=== PATIENT | female | born 1955 ===

== ENCOUNTER 2021-09-16 07:47 | Outpatient (REF) | payer MEDICARE, SELFPAY ==
[2021-09-16 11:26] LABS: MANUAL DIFF FLAG NO
[2021-09-16 11:36] LABS: Basophils Percent Auto 0.4 % (0-2); Eosinophils Absolute Auto 0.1 X10*3/uL (0.0-0.4); Eosinophils Percent Auto 2.4 % (0-4); Hematocrit 42.8 % (37.0-47.0); Hemoglobin 13.7 g/dl (12.0-16.0); Imm Gran Abs Auto 0.01 X10*3/uL (0.00-0.03); Imm Gran Pct Auto 0.2 % (0.0-0.4); Lymphocytes Absolute Auto 1.6 X10*3/uL (1.2-4.9); Lymphocytes Percent Auto 35.5 % (20-40); Mean Corpuscular Hemoglobin 29.5 pg (27.0-33.0); Mean Platelet Volume 10.3 fL (9.4-12.3); Monocytes Absolute Auto 0.5 X10*3/uL (0.1-1.2); Neutrophils Absolute Auto 2.4 x10*3/uL (2.0-8.3); Neutrophils Percent Auto 51.5 % (45-73); Platelet Count 320 X10*3/uL (160-400); Red Blood Count 4.65 X10*6/uL (4.20-5.50); Red Cell Distribution Width 13.1 % (11.0-16.0); White Blood Count 4.6 X10*3/uL (4.8-10.8)
[2021-09-16 12:04] LABS: Alanine Aminotransferase 25 U/L (0-31); Anion Gap 10 (12-20); Aspartate Amino Transferase 22 U/L (5-31); Blood Urea Nitrogen 16 mg/dL (9-16); Calcium 9.5 mg/dL (8.4-10.2); Carbon Dioxide 26 mmol/L (22-29); Chloride 105 mmol/L (96-108); Cholesterol 217 mg/dL; Estimated Glomerular Filt Rate > 60; Glucose Fasting 100 mg/dL (60-99); HDL Cholesterol 47 mg/dL; LDL Cholesterol Calculated 148 mg/dl; Potassium 4.3 mmol/L (3.3-5.1); Sodium 137 mmol/L (135-145); Triglycerides 112 mg/dL
[2021-09-16 12:09] LABS: Free T4 (Free Thyroxine) 1.26 ng/dL (0.71-1.85); Thyroid Stimulating Hormone 1.26 uIU/mL (0.32-4.0); Vitamin D 25-OH Total 23.4 ng/mL (>30)
[2021-09-21 01:47] LABS: Thyroid Peroxidase Antibodies <1 IU/mL (<9)
== END 2021-09-16 07:48 | disposition home or self-care (01) ==
LOC: HO.HMGCLDS 07:47
PROVIDERS: Visit Provider Internal Medicine
DX: E03.9 Hypothyroidism, unspecified (principal); I10 Essential (primary) hypertension; Z83.3 Family history of diabetes mellitus; N95.9 Unspecified menopausal and perimenopausal disorder
CPT/HCPCS: 36415; 80048; 80061; 82306; 84439; 84443; 84450; 84460; 85025; 86376

== ENCOUNTER 2021-11-05 12:22 | Emergency (ER) | payer MEDICARE, SELFPAY ==
[2021-11-05 13:08] VITALS: BP 147/55; PULSE 63; RESP 18; TEMP 36.9; O2SAT 97; BMI 27.1
[2021-11-05 15:55] LABS: MANUAL DIFF FLAG NO
[2021-11-05 15:56] LABS: Basophils Percent Auto 0.4 % (0-2); Eosinophils Absolute Auto 0.1 X10*3/uL (0.0-0.4); Eosinophils Percent Auto 1.5 % (0-4); Hematocrit 42.2 % (37.0-47.0); Hemoglobin 14.1 g/dl (12.0-16.0); Imm Gran Abs Auto 0.01 X10*3/uL (0.00-0.03); Imm Gran Pct Auto 0.1 % (0.0-0.4); Lymphocytes Absolute Auto 2.2 X10*3/uL (1.2-4.9); Lymphocytes Percent Auto 30.2 % (20-40); Mean Corpuscular HGB Conc 33.4 g/dl (31.0-35.0); Mean Corpuscular Hemoglobin 29.7 pg (27.0-33.0); Mean Platelet Volume 9.6 fL (9.4-12.3); Monocytes Absolute Auto 0.5 X10*3/uL (0.1-1.2); Monocytes Percent Auto 6.5 % (2-11); Neutrophils Absolute Auto 4.5 x10*3/uL (2.0-8.3); Neutrophils Percent Auto 61.3 % (45-73); Platelet Count 301 X10*3/uL (160-400); Red Blood Count 4.74 X10*6/uL (4.20-5.50); Red Cell Distribution Width 12.4 % (11.0-16.0); White Blood Count 7.3 X10*3/uL (4.8-10.8)
[2021-11-05 16:13] LABS: Alanine Aminotransferase 23 U/L (0-31); Albumin Level 4.3 g/dL (3.5-5.0); Alkaline Phosphatase 116 U/L (39-117); Anion Gap 12 (12-20); Aspartate Amino Transferase 23 U/L (5-31); Bilirubin Direct < 0.2 mg/dL (0.0-0.5); Bilirubin Total 0.4 mg/dL (0.0-1.0); Blood Urea Nitrogen 12 mg/dL (9-16); Calcium 9.5 mg/dL (8.4-10.2); Carbon Dioxide 28 mmol/L (22-29); Chloride 102 mmol/L (96-108); Creatinine Clr Calc Pharmacy 60.4; Estimated Glomerular Filt Rate > 60; Glucose Random 160 mg/dL (60-115); Lipase 34 U/L (8-78); Potassium 4.2 mmol/L (3.3-5.1); Sodium 138 mmol/L (135-145); Total Protein 7.1 g/dL (6.5-8.0)
[2021-11-07 07:42] LABS: HBS Num1 1.13 mIU/mL (0-7.99); HBc Num1 0.15 S/CO (0.00-0.79); HBsAGNum1 0.18 S/CO (0.00-0.99); HIV AB/AG Nonreactive (Nonreactive); Hepatitis B Core Antibody Nonreactive (Nonreactive); Hepatitis B Surface Antigen Negative (Negative); ~HepC Num1 0.09 S/CO (0.00-0.79); ~Hepatitis B Surface Antibody NONREACTIVE (Nonreactive); ~Hepatitis C Antibody Nonreactive (Nonreactive)
== END 2021-11-05 16:44 | disposition left against medical advice (07) ==
PROVIDERS: Physician Assistant Medical; Emergency Provider Emergency Medicine
DX: Z20.6 Contact with and (suspected) exposure to human immunodeficiency virus [HIV] (principal)
CPT/HCPCS: 36415; 80048; 80076; 83690; 85025; 86704; 86706; 86803; 87340; 87389; 99281; 99283

== ENCOUNTER 2022-03-03 07:01 | Outpatient (REF) | payer MEDICARE, SELFPAY ==
[2022-03-03 12:22] LABS: Free T4 (Free Thyroxine) 1.17 ng/dL (0.71-1.85); Thyroid Stimulating Hormone 1.67 uIU/mL (0.32-4.0)
[2022-03-03 12:44] LABS: Alanine Aminotransferase 21 U/L (0-31); Anion Gap 15 (12-20); Aspartate Amino Transferase 18 U/L (5-31); Blood Urea Nitrogen 18 mg/dL (9-16); Calcium 9.6 mg/dL (8.4-10.2); Carbon Dioxide 27 mmol/L (22-29); Chloride 102 mmol/L (96-108); Cholesterol 223 mg/dL; Estimated Glomerular Filt Rate > 60; Glucose Fasting 119 mg/dL (60-99); HDL Cholesterol 45 mg/dL; LDL Cholesterol Calculated 148 mg/dl; Potassium 4.2 mmol/L (3.3-5.1); Sodium 140 mmol/L (135-145); Triglycerides 154 mg/dL
[2022-03-03 13:33] LABS: Vitamin D 25-OH Total 51.2 ng/mL (>30)
== END 2022-03-03 07:02 | disposition home or self-care (01) ==
LOC: HO.HMGCLDS 07:01
PROVIDERS: PCP Internal Medicine; Visit Provider Internal Medicine
DX: Z00.01 Encounter for general adult medical examination with abnormal findings (principal); I10 Essential (primary) hypertension; E03.9 Hypothyroidism, unspecified; Z83.3 Family history of diabetes mellitus; Z71.89 Other specified counseling
CPT/HCPCS: 36415; 80048; 80061; 82306; 84439; 84443; 84450; 84460

== ENCOUNTER 2022-03-14 07:38 | Outpatient (REF) | payer MEDICARE, SELFPAY ==
--- NOTE | ~2022-03-14 | MM_ITS ---
EXAMINATION: MM SCREENING DIGITAL BREAST TOMOSYNTHESIS, BILATERAL CLINICAL INFORMATION: Screening. Asymptomatic. The lifetime risk of breast cancer based on the Tyrer-Cuzick Model is 5%. COMPARISON: Mammography: 10/25/2017, 08/20/2015 TECHNIQUE: Digital breast tomosynthesis is performed in both the craniocaudal and mediolateral oblique views along with computer-aided detection (CAD). Synthesized 2D images are generated from the tomosynthesis. FINDINGS: There are scattered areas of fibroglandular density (ACR BI-RADS breast composition Category b). There are no significant masses, abnormal calcifications, or other abnormalities. Parenchymal pattern is similar to prior studies. No developing density or architectural abnormality. The axilla are unremarkable. MM/MM tomosynthesis screening BI IMPRESSION: No mammographic evidence of malignancy. ASSESSMENT: BI-RADS 1: Negative RECOMMENDATION: Routine annual mammography screening. This patient's information was entered into a reminder system with a target due date for their next mammogram.
== END 2022-03-14 07:39 | disposition home or self-care (01) ==
LOC: HO.MAMMO 07:38
PROVIDERS: Visit Provider Internal Medicine
DX: Z12.31 Encounter for screening mammogram for malignant neoplasm of breast (principal)
CPT/HCPCS: 77063; 77067

== ENCOUNTER 2022-08-25 06:43 | Outpatient (REF) | payer MEDICARE, SELFPAY ==
[2022-08-25 11:51] LABS: Estimated Average Glucose 126 mg/dL
[2022-08-25 12:38] LABS: Anion Gap 10 (12-20); Blood Urea Nitrogen 14 mg/dL (9-16); Calcium 9.4 mg/dL (8.4-10.2); Carbon Dioxide 28 mmol/L (22-29); Chloride 105 mmol/L (96-108); Cholesterol 204 mg/dL; Estimated Glomerular Filt Rate > 60; Glucose Fasting 108 mg/dL (60-99); HDL Cholesterol 38 mg/dL; LDL Cholesterol Calculated 137 mg/dl; Sodium 139 mmol/L (135-145); Triglycerides 149 mg/dL
[2022-08-25 12:41] LABS: Free T4 (Free Thyroxine) 1.08 ng/dL (0.71-1.85); Thyroid Stimulating Hormone 3.18 uIU/mL (0.32-4.0)
== END 2022-08-25 06:44 | disposition home or self-care (01) ==
LOC: HO.HMGCLDS 06:43
PROVIDERS: PCP Internal Medicine; Visit Provider Internal Medicine
DX: E03.9 Hypothyroidism, unspecified (principal); E78.5 Hyperlipidemia, unspecified; I10 Essential (primary) hypertension; Z83.3 Family history of diabetes mellitus
CPT/HCPCS: 36415; 80048; 80061; 83036; 84439; 84443

== ENCOUNTER 2022-08-28 11:17 | Outpatient (AMB) | payer MEDICARE, SELFPAY ==
--- NOTE | 2022-08-28 11:28 | A.OFFPC_ITS ---
Vital Signs 08/28/22 11:41 Height 5 ft Weight 148 lb BMI 28.9 BP 120/72 Blood Pressure Location Rt brachial Position Sitting Pulse 78 Pulse Source Pulse Oximeter Pulse Oximetry (%) 97 Oxygen Delivery Method Room Air Intake Visit Reasons: 6 month follow up HTN, Lipids,Thyroid Intake Note: Pt is here today for her 6 months f/u HTN, lipids and thyriod Allergies No Known Allergies Allergy (Verified 10/12/23 10:54) Medication List - Last Reconciled 08/28/22 by Tiffany Kapoor MD doxepin mg PO fexofenadine ([facility] All[facility]) 180 mg PO DAILY levothyroxine 75 mcg PO DAILY Tobacco use date assessed: 08/28/22 Fall risk assessment: No Falls in past year Last assessed Fall Risk: 08/28/22 HPI 6 month follow up HTN, Lipids,Thyroid HPI Details 67-year-old lady here today for follow-u p on her hypertension, dysl ipidemia hypothyroidism. She has been compliant with taking her medications and following recommended diet. Recent fasting labs showed slightly elevated LDL cholesterol and triglycerides as well as fasting blood sugar , blood pressure within normal limits. Thyroid levels are also within normal limits. Instead of persistent cough, dry with no accompanying shortness of breath, no wheezing, has been afebrile with no complains of fatigue or malaise. She is that this has been present now for the last several months, has been taking [id number] allergy medicines which affords only temporary relief. [facility] Medical History Impaired fasting glucose Dyslipidemia Family history of diabetes mellitus Difficulty sleeping Witnessed apneic spells Snoring Acquired hypothyroidism Surgical History H/O section Hx laparoscopic cholecystectomy Hx of tonsillectomy Family History Maternal Aunt Mental health disorder Father CAD (coronary artery disease) HTN (hypertension) Mother HTN (hypertension) Sister Diabetes mellitus Social History Housing: House Patient Tobacco Use Status: Never used Tobacco e-Cigarette/Vaping Use: Never Used service: No Current occupational status: retired Cognitive needs: No Hearing needs: No Vision needs: Yes Questionnaire PHQ-9 Over the last 2 weeks, how often have you been bothered by any of the following problems? 72545 - PHQ-9 Billing: Patient declined-do not bill Source: Developed by Drs. Jackson Lerner, Iva Herron, Robert Shi and colleagues, with an educational nissa from [employer]. Thrive Questionnaire Date Thrive assessed: 08/28/22 What is your living situation today?: I choose not to answer this question Within the past 12 months, did the food you bought not last and you didn't have the money to get more?: I choose not to answer this question Within the past 12 months, did you worry whether your food would run out before you got money to buy more?: I choose not to answer this question Do you have trouble paying for medicines?: I choose not to answer this question Do you have trouble getting transportation to medical appointments?: I choose not to answer this question Do you have trouble paying your heating and electricity bill?: I choose not to answer this question Do you have trouble taking care of your child, family member or friend?: I choose not to answer this question Do you have trouble with day-to-day activities such as bathing, preparing meals, shopping, managing finances, etc.?: I choose not to answer this question Are you currently unemployed and looking for a job?: I choose not to answer this question Are you interested in more education?: I choose not to answer this question AUDIT C Alcohol Use Questionnaire (AUDIT-C) 1. How often do you have a drink containing alcohol?: Never Total Score: 0 SUZE-7 AMB Questionnaire SUZE-7 Date SUZE - 7 assessed: 08/28/22 Source: Developed by Drs. Jackson Lerner, Iva Herron, Robert Shi and colleagues, with an educational nissa from [employer]. SUZE-7 Assessment Billing SUZE-7 Assessment Tool: pt declined-do not bill Review of Systems Const Denies body aches, Denies fatigue, Denies fever(s) and Denies headache(s) ENT Denies dizziness, Denies headache(s) and Denies nasal discharge Card Denies chest pain, Denies lightheadedness, Denies palpitations and Denies dyspnea Resp Denies chest congestion, Denies dyspnea and Denies wheezing GI Reports no additional complaints and Denies heartburn Denies urinary frequency, Denies dysuria and Denies urinary urgency Musc Reports no additional complaints Skin/Breast Denies lesions and Denies rash Neuro Denies dizziness and Denies headache(s) Endo Denies fatigue, Denies polydipsia, Denies polyuria and Denies palpitations Gustabo/Lymph Denies easy bruising Aller/Immun Reports seasonal rhinorrhea and Denies wheezing Physical exam (Primary Care) Vital Signs: Last Vital Signs Pulse 78 08/28/22 11:41 BP 120/72 08/28/22 11:41 Pulse Ox 97 08/28/22 11:41 Oxygen Delivery Method Room Air 08/28/22 11:41 BMI result Body Mass Index 28.9 Tobacco/Smoking Status: Tobacco use Status Tobacco use date assessed 08/28/22 08/28/22 11:44 Patient Tobacco Use Status Never used Tobacco 08/28/22 11:28 e-Cigarette/Vaping Use Never Used 08/28/22 11:28 Thrive Assessment: Date of Thrive Assessment Date Thrive assessed 08/28/22 08/28/22 11:41 Const Other: Alert oriented x3, no acute distress noted ambulatory normal gait Orientation/consciousness: patient oriented x3 HENKY Head: Yes atraumatic Ears: hearing grossly normal bilaterally General nose exam: Normal external nose present Face and sinus: Yes face symmetric Mouth: Normal oral and palatal mucosa present, oropharynx normal and moist mucous membranes Eyes General: appearance normal, both eyes and all related structures Neck Other: Thyroid gland nonpalpable, nontender to palpation Neck: Yes full ROM, Yes no lymphadenopathy, Yes no meningeal signs and Yes supple Resp Effort & Inspection: normal respiratory effort and able to speak in complete sentences Auscultation: clear to auscultation bilaterally Cardio Other: S1 S2 present regular rate and rhythm GI Other: Normal bowel sounds, soft, slight tenderness on right upper quadrant with no mass palpated negative Hays's sign General: Yes no CVA tenderness Back/Spine/Pelvis Back: no CVA tenderness and No back tenderness Skin General skin exam: no rashes or lesions noted Neuro General: patient oriented x3, gait normal, tone normal, moves all extremities, Normal light touch and pain sensation, no meningeal signs, no focal motor deficits and CN's II-XI intact bilaterally Extrem General: Yes full ROM, Yes no joint enlargement, Yes no clubbing, cyanosis or edema, Yes no calf tenderness and Yes normal gait Results Reviewed Results Reviewed: ENTERED: 08/25/22 KATHE VITALE: ORDERED: Met Prof Fast, Lipid Panel, Free T4, TSH Test Result Flag Reference Site Sodium 139 135-145 mmol/L Potassium 4.0 3.3-5.1 mmol/L CL 105 96-108 mmol/L CO2 28 22-29 mmol/L Gap 10 L 12-20 BUN 14 9-16 mg/dL Creat 0.73 0.5-1.4 mg/dL EGFR > 60 NOTE: For -[place] individuals, multiply the result by 1.210. Chronic Kidney Disease: Estimated GFR < 60 mL/min/1.73m2 Severe Kidney Disease: Estimated GFR < 15 mL/min/1.73m2 FBS 108 H 60-99 mg/dL A fasting glucose from 100-125 mg/dl is considered impaired (pre-diabetes). CA 9.4 8.4-10.2 mg/dL Triglyceride 149 mg/dL Desirable Triglyceride: less than 150 mg/dL Borderline High Triglyceride 150-199 mg/dL High Triglyceride: 200-499 mg/dL Very High Triglyceride: greater than or equal to 5OO mg/dL Chol 204 mg/dL Desirable Cholesterol: less than 200 mg/dL Borderline High Cholesterol: 200-239 mg/dL High Cholesterol: greater than 239 mg/dL LDL Calculated 137 mg/dl Desirable LDL: less than 100 mg/dL Near Optimal/Above Optimal LDL: 110-129 mg/dL Borderline High LDL: 130-159 mg/dL High LDL: 160-189 mg/dL Very High LDL: greater than or equal to 190 mg/dL HDL 38 mg/dL Desirable HDL: greater than 40 mg/dL Note: This HDL assay may give artificially low results in patients with liver disease. Free T4 1.08 0.71-1.85 ng/dL TSH 3rd Gen. 3.18 0.32-4.0 uIU/mL Note: A sustained TSH level above 2.5 uIU/mL may warrant further investigation. TSH 3rd Generation ([facility]) Assessment and Plan Assessment & Plan (1) Unexplained chronic cough: Code(s): R05.3 - Chronic cough Plan: Ordered pulmonary function testing with methacholine challenge. Empirically started on fexofenadine 180 mg per tablet take 1 daily as needed for nasal congestion and postnasal drainage. (2) Impaired fasting glucose: Code(s): R73.01 - Impaired fasting glucose Plan: Your fasting blood sugars elevated above 100 mg/dL. Impaired glucose metabolism increases your risk for developing diabetes mellitus type 2, as well as heart attack and stroke later on. Lifestyle changes , weight loss, healthy eating habits, and regular exercise are important, and can prevent the progression to diabetes (3) Dyslipidemia: Code(s): E78.5 - Hyperlipidemia, unspecified Plan: Recent fasting labs reveals high LDL cholesterol. Reinforced importance of following healthy diet and getting regular exercise. (4) Acquired hypothyroidism: Code(s): E03.9 - Hypothyroidism, unspecified Plan: Recent thyroid levels are within normal limits, continue with current dose of levothyroxine 75 mcg daily Orders: Orders RT pft w methacholine 08/28/22 R05.3 - Chronic cough PFT pulmonary function test 08/28/22 R05.3 - Chronic cough Medications: New fexofenadine ([facility] Allergy) 180 mg PO DAILY Coding Level of Care Code Est Pt Level 4 (54569) Complex EM visit Add On G2211 Diagnoses Unexplained chronic cough R05.3 Impaired fasting glucose R73.01 Dyslipidemia E78.5 Acquired hypothyroidism E03.9
[2022-08-28 11:41] VITALS: BP 120/72; PULSE 78; O2SAT 97; BMI 28.9
== END 2022-08-28 13:05 | disposition home or self-care (01) ==
LOC: HO.HMGC 11:18
PROVIDERS: PCP Internal Medicine; Visit Provider Internal Medicine
DX: R05.3 Chronic cough (principal); R73.01 Impaired fasting glucose; E78.5 Hyperlipidemia, unspecified; E03.9 Hypothyroidism, unspecified
CPT/HCPCS: 99499

== ENCOUNTER 2022-11-24 09:04 | Outpatient (REF) | payer MEDICARE, SELFPAY ==
--- NOTE | 2022-11-24 10:02 | PFT_ITS ---
INDICATION: Cough. SPIROMETRY: FEV1 to FVC of 89% with an FEV1 of 2.34 L, which is 122% predicted. FVC of 2.62 L, which is 105% predicted. No significant response to bronchodilators noted. Maximum voluntary ventilation 59% predicted. LUNG VOLUMES: Total lung capacity 79% predicted with an expiratory reserve volume of 22% predicted. DIFFUSION CAPACITY: DLCO 113% predicted. COMPARISONS: None. INTERPRETATION: No obstructive ventilatory defects. No significant response to bronchodilators noted. There was a moderate decrease in the maximum voluntary ventilation, which should be secondary to deconditioning, although cannot rule out normal muscular conditions. The patient does have restrictive ventilatory defect consistent with very mild restrictive lung disease. Parenchymal lung conditions cannot rule out. Neuromuscular conditions also need to be considered. Again, this is only a mild decrease. The diffusion capacity reassuring. Clinical correlation warranted. Homero Diaz MD MR/MODL / [id number]
== END 2022-11-24 09:05 | disposition home or self-care (01) ==
LOC: HO.RESP 09:04
PROVIDERS: PCP Internal Medicine; Visit Provider Internal Medicine
DX: R05.3 Chronic cough (principal)
CPT/HCPCS: 94010; 94727; 94729

== ENCOUNTER → 2022-11-24 10:02 | Outpatient (BNV) | payer MEDICARE, SELFPAY | PROVIDERS: PCP Internal Medicine; Visit Provider Hospitalist | DX: R05.9 Cough, unspecified (principal) | CPT/HCPCS: 94060; 94727; 94729 ==

== ENCOUNTER 2023-03-09 10:38 | Outpatient (AMB) | payer MEDICARE, SELFPAY ==
[2023-03-09 11:05] VITALS: BP 136/82; PULSE 64; O2SAT 97; BMI 29.0
--- NOTE | 2023-03-09 11:05 | MHC.PC.OV ---
Vital Signs 03/09/23 11:05 Height 5 ft Weight 148 lb 8 oz BMI 29.0 BP 136/82 Blood Pressure Location Rt brachial Position Sitting Pulse 64 Pulse Source Pulse Oximeter Pulse Oximetry (%) 97 Oxygen Delivery Method Room Air Intake Visit Reasons: Annual Physical Intake Note: pt is here for a PE pt has not had the recent covid booster Allergies No Known Allergies Allergy (Verified 10/12/23 10:54) Medication List - Last Reconciled 03/09/23 by Tiffany Kapoor MD doxepin mg PO fexofenadine ([facility]) 180 mg PO DAILY levothyroxine 75 mcg PO DAILY Tobacco use date assessed: 08/28/22 Fall risk assessment: No Falls in past year Last assessed Fall Risk: 03/09/23 Dental Screening Dental Screen Date: 03/09/23 Did you have a dental visit in the last 12 months?: Yes Did you have a dental problem in the last 6 months where you did not have access to dental care?: No Was dental information given to patient?: Patient has dentist HPI Annual Physical HPI Details 68-year-old lady with hypothyroidism, with history of impaired fasting glucose, here today for her physical exam. She is already scheduled for her screening mammogram later this month, and is up-to-date with her screening colonoscopy [place] [address] Pina, repeat due again in 2028. Has been feeling well with no complaints at slept for occasional difficulty initiating sleep. [facility] Medical History Impaired fasting glucose Dyslipidemia Family history of diabetes mellitus Difficulty sleeping Witnessed apneic spells Snoring Acquired hypothyroidism Surgical History H/O section Hx laparoscopic cholecystectomy Hx of tonsillectomy Family History Maternal Aunt Mental health disorder Father CAD (coronary artery disease) HTN (hypertension) Mother HTN (hypertension) Sister Diabetes mellitus Social History Housing: House Patient Tobacco Use Status: Never used Tobacco e-Cigarette/Vaping Use: Never Used service: No Current occupational status: retired Cognitive needs: No Hearing needs: No Vision needs: Yes Questionnaire PHQ-9 Over the last 2 weeks, how often have you been bothered by any of the following problems? Depression Screening Interpretation: Negative Depression Screening Done: Yes Source: Developed by Drs. Jackson Lerner, Iva Herron, Robert Shi and colleagues, with an educational nissa from [employer]. Thrive Questionnaire Date Thrive assessed: 08/28/22 SUZE-7 AMB Questionnaire SUZE-7 Date SUZE - 7 assessed: 08/28/22 Source: Developed by Drs. Jackson Lerner, Iva Herron, Robert Shi and colleagues, with an educational nissa from [employer]. Review of Systems Const Denies body aches, Denies fatigue, Denies fever(s) and Denies headache(s) Eyes Denies change in vision ENT Denies dizziness, Denies headache(s) and Denies nasal discharge Card Denies chest pain, Denies lightheadedness, Denies palpitations and Denies dyspnea Resp Denies chest congestion, Denies cough, Denies dyspnea and Denies wheezing GI Reports no additional complaints Denies urinary frequency, Denies dysuria and Denies urinary urgency Musc Reports no additional complaints Skin/Breast Denies lesions and Denies rash Neuro Denies dizziness and Denies headache(s) Psych Reports no additional complaints Endo Denies fatigue, Denies polydipsia, Denies polyuria and Denies palpitations Gustabo/Lymph Denies easy bruising Aller/Immun Denies seasonal rhinorrhea and Denies wheezing Physical exam (Primary Care) Vital Signs: Last Vital Signs Pulse 64 03/09/23 11:05 BP 136/82 03/09/23 11:05 Pulse Ox 97 03/09/23 11:05 Oxygen Delivery Method Room Air 03/09/23 11:05 BMI result Body Mass Index 29.0 Tobacco/Smoking Status: Tobacco use Status Tobacco use date assessed 08/28/22 03/09/23 11:10 Patient Tobacco Use Status Never used Tobacco 03/09/23 11:10 e-Cigarette/Vaping Use Never Used 03/09/23 11:10 Depression Screening Interpretation: Negative Thrive Assessment: Date of Thrive Assessment Date Thrive assessed 08/28/22 03/09/23 11:10 Const Other: Alert oriented x3, no acute distress noted ambulatory normal gait Orientation/consciousness: patient oriented x3 [facility] General nose exam: Normal external nose present Face and sinus: Yes face symmetric Mouth: Normal oral and palatal mucosa present, oropharynx normal and moist mucous membranes Eyes General: appearance normal, both eyes and all related structures Neck Other: Thyroid gland nonpalpable, nontender to palpation Neck: Yes full ROM, Yes no lymphadenopathy, Yes no meningeal signs and Yes supple Chest Breast/axilla inspection: normal inspection of the breasts Breast/axilla palpation: normal palpation of the breasts Resp Effort & Inspection: normal respiratory effort and able to speak in complete sentences Auscultation: clear to auscultation bilaterally Cardio Other: S1 S2 present regular rate and rhythm GI Palpation (GI): Soft to palpation, nontender and no guarding Auscultation: normal bowel sounds General: Yes no CVA tenderness Back/Spine/Pelvis Back: no CVA tenderness and No back tenderness Skin General skin exam: no rashes or lesions noted Neuro General: patient oriented x3, gait normal, tone normal, moves all extremities, Normal light touch and pain sensation, no meningeal signs, no focal motor deficits and CN's II-XI intact bilaterally Extrem General: Yes full ROM, Yes no joint enlargement, Yes no clubbing, cyanosis or edema, Yes no calf tenderness and Yes normal gait Psych Appearance: grossly normal and well kempt Mental Status: mental status grossly normal Speech and movement: Normal speech and movement present Affect: normal affect Assessment and Plan Assessment & Plan (1) Annual visit for general adult medical examination with abnormal findings: Code(s): Z00.01 - Encounter for general adult medical examination with abnormal findings Plan: Will check appropriate labs. Continue regular dental visit every 6 months and regular eye exams, at least every 2 years. Take adequate calcium in diet and vitamin-D 3 at 2000 IU per cap once a day, in addition to weight-bearing exercises to help maintain good muscle tone and weight control. Instructed to do self-breast exam, and continue with yearly mammogram, starting , already scheduled. Up-to-date with her screening colonoscopy done in 2018, due again in [address] Pina. Reminded to get the most recent COVID vaccine booster, gets yearly flu shot , up-to-date with her pneumococcal vaccination, recommended to get vaccinated against shingles, which she can get administered at her pharmacy (2) Dyslipidemia: Code(s): E78.5 - Hyperlipidemia, unspecified Plan: Last fasting lipids showed elevated LDL cholesterol, reinforced importance of adhering to a healthy diet, and getting regular cardio exercise at least 3 times a week. (3) Acquired hypothyroidism: Code(s): E03.9 - Hypothyroidism, unspecified (4) Essential hypertension: Code(s): I10 - Essential (primary) hypertension (5) Impaired fasting glucose: Code(s): R73.01 - Impaired fasting glucose Plan: Your fasting blood sugars elevated was above 100 mg/dL. Impaired glucose metabolism increases the t risk for developing diabetes mellitus type 2, as well as heart attack and stroke later on. Lifestyle changes , healthy eating habits, and regular exercise are important, and can prevent the progression to diabetes (6) Difficulty sleeping: Code(s): G47.9 - Sleep disorder, unspecified Plan: Will increase doxepin dose to 10 mg 1 a day bedtime as needed for insomnia Orders: Orders Hemoglobin A1c 03/09/23 E78.5 - Hyperlipidemia, unspecified, Z83.3 - Family history of diabetes mellitus, E03.9 - Hypothyroidism, unspecified, I10 - Essential (primary) hypertension Lipid Panel 03/09/23 E78.5 - Hyperlipidemia, unspecified, Z83.3 - Family history of diabetes mellitus, E03.9 - Hypothyroidism, unspecified, I10 - Essential (primary) hypertension Vitamin D 25-OH Total 03/09/23 E78.5 - Hyperlipidemia, unspecified, Z83.3 - Family history of diabetes mellitus, E03.9 - Hypothyroidism, unspecified, I10 - Essential (primary) hypertension Thyroid Stimulating Hormone 03/09/23 E78.5 - Hyperlipidemia, unspecified, Z83.3 - Family history of diabetes mellitus, E03.9 - Hypothyroidism, unspecified, I10 - Essential (primary) hypertension Free T4 (Free Thyroxine) 3 Months E03.9 - Hypothyroidism, unspecified, E78.5 - Hyperlipidemia, unspecified, Z83.3 - Family history of diabetes mellitus, I10 - Essential (primary) hypertension Medications: Changed From doxepin PO To doxepin 10 mg PO BEDTIME PRN 90 caps 0RF insomnia Refilled levothyroxine 75 mcg PO DAILY 90 tabs 1RF Coding Level of Care Code Est Pt Prev Care >65y(48602) Diagnoses Annual visit for general adult medical examination with abnormal findings Z00.01 Dyslipidemia E78.5 Acquired hypothyroidism E03.9 Essential hypertension I10 Impaired fasting glucose R73.01 Difficulty sleeping G47.9
== END 2023-03-09 12:05 | disposition home or self-care (01) ==
PROVIDERS: Visit Provider Internal Medicine
DX: Z00.01 Encounter for general adult medical examination with abnormal findings (principal); E78.5 Hyperlipidemia, unspecified; E03.9 Hypothyroidism, unspecified; I10 Essential (primary) hypertension; R73.01 Impaired fasting glucose; G47.9 Sleep disorder, unspecified
CPT/HCPCS: 99499

== ENCOUNTER 2023-03-21 07:21 | Outpatient (REF) | payer MEDICARE, SELFPAY ==
--- NOTE | ~2023-03-21 | MM_ITS ---
EXAMINATION: MM SCREENING DIGITAL BREAST TOMOSYNTHESIS, BILATERAL CLINICAL INFORMATION: Screening. Asymptomatic. COMPARISON: Mammography: This study is compared with prior exams dating back to 2015. TECHNIQUE: Digital breast tomosynthesis is performed in both the craniocaudal and mediolateral oblique views along with computer-aided detection (CAD). Synthesized 2D images are generated from the tomosynthesis. FINDINGS: There are scattered areas of fibroglandular density (ACR BI-RADS breast composition Category b). There are no significant masses, abnormal calcifications, or other abnormalities. MM/MM tomosynthesis screening BI IMPRESSION: No mammographic evidence of malignancy. ASSESSMENT: BI-RADS BI-RADS 1 - Negative RECOMMENDATION: Routine annual mammography screening. 1 year F/U This examination should not preclude the clinical evaluation of a suspicious palpable abnormality. This patient's information was entered into a reminder system with a target due date for their next mammogram.
== END 2023-03-21 07:22 | disposition home or self-care (01) ==
LOC: HO.MAMMO 07:21
PROVIDERS: PCP Internal Medicine; Visit Provider Internal Medicine
DX: Z12.31 Encounter for screening mammogram for malignant neoplasm of breast (principal)
CPT/HCPCS: 77063; 77067

== ENCOUNTER → 2023-03-21 07:30 | Outpatient (BNV) | payer MEDICARE, SELFPAY | PROVIDERS: PCP Internal Medicine; Visit Provider Radiology Diagnostic Radiology | DX: Z12.31 Encounter for screening mammogram for malignant neoplasm of breast (principal) | CPT/HCPCS: 77063; 77067 ==

== ENCOUNTER 2023-04-13 07:29 | Outpatient (REF) | payer MEDICARE, SELFPAY ==
[2023-04-13 11:38] LABS: Cholesterol 199 mg/dL (<200); HDL Cholesterol 42 mg/dL (>40); LDL Cholesterol Calculated 121 mg/dL (<100); Triglycerides 184 mg/dL (<150)
[2023-04-13 11:44] LABS: Thyroid Stimulating Hormone 1.66 uIU/mL (0.32-4.0); Vitamin D 25-OH Total 52.7 ng/mL (>30)
[2023-04-13 11:59] LABS: Estimated Average Glucose 126 mg/dL
== END 2023-04-13 07:30 | disposition home or self-care (01) ==
LOC: HO.HMGCLDS 07:29
PROVIDERS: PCP Internal Medicine; Visit Provider Internal Medicine
DX: I10 Essential (primary) hypertension (principal); E03.9 Hypothyroidism, unspecified; E78.5 Hyperlipidemia, unspecified; Z83.3 Family history of diabetes mellitus
CPT/HCPCS: 36415; 80061; 82306; 83036; 84443

== ENCOUNTER 2023-06-08 09:58 | Outpatient (REF) | payer MEDICARE, SELFPAY ==
[2023-06-08 14:19] LABS: Free T4 (Free Thyroxine) 1.14 ng/dL (0.71-1.85)
== END 2023-06-08 09:59 | disposition home or self-care (01) ==
LOC: HO.HMGCLDS 09:58
PROVIDERS: PCP Internal Medicine; Visit Provider Internal Medicine
DX: E03.9 Hypothyroidism, unspecified (principal); E78.5 Hyperlipidemia, unspecified; I10 Essential (primary) hypertension; Z83.3 Family history of diabetes mellitus
CPT/HCPCS: 36415; 84439

== ENCOUNTER 2023-09-14 11:11 | Outpatient (AMB) | payer MEDICARE, SELFPAY ==
[2023-09-14 11:32] VITALS: BP 132/80; PULSE 66; TEMP 36.6; O2SAT 98; BMI 28.9
--- NOTE | 2023-09-14 11:32 | AM.OFFWIN_ITS ---
Intake Vital Signs 09/14/23 11:32 Height 5 ft Weight 148 lb BMI 28.9 BP 132/80 Blood Pressure Location Rt brachial Position Sitting Pulse 66 Pulse Source Pulse Oximeter Temp 97.8 F Temp Source Temporal Artery Scan Pulse Oximetry (%) 98 Intake Visit Reasons: EST/right side pain radiating through back (lobby) Intake Note: pt is here for right side/rib pain ongoing since before February Patient Tobacco Use Status: Never used Tobacco Allergies No Known Allergies Allergy (Verified 09/14/23 11:34) Do you need a note to return to daycare/school/sports/work: No HPI HPI Comments History of Present Illness Details 68 y/o female patient who presents to [facility] in clinic with c/o right upper abdominal pain. This is an on going issue for months. Pt has an appointment with PCP in September. [facility] Medical History (Updated 09/05/23 @ 22:03 by Tiffany Kapoor MD) Impaired fasting glucose Unexplained chronic cough Dyslipidemia Family history of diabetes mellitus Difficulty sleeping Witnessed apneic spells Snoring Essential hypertension Acquired hypothyroidism Surgical History H/O section Hx laparoscopic cholecystectomy Hx of tonsillectomy Family History Maternal Aunt Mental health disorder Father CAD (coronary artery disease) HTN (hypertension) Mother HTN (hypertension) Sister Diabetes mellitus Social History Housing: House Patient Tobacco Use Status: Never used Tobacco e-Cigarette/Vaping Use: Never Used service: No Current occupational status: retired Cognitive needs: No Hearing needs: No Vision needs: Yes Review of Systems Const All systems reviewed & are unremarkable except as noted in HPI and below Physical Exam Vital Signs: Last Vital Signs Temp 97.8 F 09/14/23 11:32 Pulse 66 09/14/23 11:32 BP 132/80 09/14/23 11:32 Pulse Ox 98 09/14/23 11:32 BMI result Body Mass Index 28.9 Const Orientation/consciousness: patient oriented x3 Neuro General: patient oriented x3, gait normal and moves all extremities Psych Speech and movement: Normal speech and movement present Assessment & Plan Assessment & Plan (1) Right upper quadrant abdominal pain: Code(s): R10.11 - Right upper quadrant pain Plan: - Pt has an upcoming Appointment with PCP in September - F/U with PCP regarding this issue - PCP ordered Fasting Labs to done prior to Appointment. Coding Level of Care Code Est Pt Level 3 (10409) Diagnoses Right upper quadrant abdominal pain R10.11 Time Spent (min) 10
== END 2023-09-14 12:43 | disposition home or self-care (01) ==
PROVIDERS: PCP Internal Medicine; Visit Provider Nurse Practitioner Family
DX: R10.11 Right upper quadrant pain (principal)
CPT/HCPCS: 99213

== ENCOUNTER 2023-09-15 08:28 | Outpatient (REF) | payer MEDICARE, SELFPAY ==
[2023-09-15 11:33] LABS: Estimated Average Glucose 128 mg/dL; Hemoglobin A1c % 6.1 % (<6.0)
[2023-09-15 11:44] LABS: Anion Gap 12 (12-20); Blood Urea Nitrogen 21 mg/dL (9-16); Calcium 9.2 mg/dL (8.4-10.2); Carbon Dioxide 25 mmol/L (22-29); Chloride 107 mmol/L (96-108); Cholesterol 209 mg/dL (<200); Estimated Glomerular Filt Rate > 60; Glucose Fasting 108 mg/dL (60-99); HDL Cholesterol 45 mg/dL (>40); LDL Cholesterol Calculated 138 mg/dL (<100); Potassium 3.9 mmol/L (3.3-5.1); Sodium 140 mmol/L (135-145); Triglycerides 132 mg/dL (<150)
[2023-09-15 12:09] LABS: Free T4 (Free Thyroxine) 1.15 ng/dL (0.71-1.85); Thyroid Stimulating Hormone 1.68 uIU/mL (0.32-4.0)
== END 2023-09-15 08:29 | disposition home or self-care (01) ==
LOC: HO.HMGCLDS 08:28
PROVIDERS: PCP Internal Medicine; Visit Provider Internal Medicine
DX: R73.01 Impaired fasting glucose (principal); E78.5 Hyperlipidemia, unspecified; E03.9 Hypothyroidism, unspecified
CPT/HCPCS: 36415; 80048; 80061; 83036; 84439; 84443

== ENCOUNTER 2023-09-24 11:43 | Outpatient (AMB) | payer MEDICARE, SELFPAY ==
--- NOTE | 2023-09-24 11:47 | A.OFFPC_ITS ---
Vital Signs 09/24/23 11:50 Height 5 ft Weight 149 lb 4 oz BMI 29.1 BP 130/90 H Blood Pressure Location Rt brachial Position Sitting Pulse 53 Pulse Source Pulse Oximeter Pulse Oximetry (%) 97 Oxygen Delivery Method Room Air Intake Visit Reasons: f/u with labs Intake Note: Patient here to f/u on labs. Allergies No Known Allergies Allergy (Verified 09/24/23 12:15) Medication List - Last Reconciled 09/24/23 by Tiffany Kapoor MD fexofenadine ([facility]) 180 mg PO DAILY PRN levothyroxine 75 mcg PO DAILY Tobacco use date assessed: 09/24/23 Fall risk assessment: No Falls in past year Last assessed Fall Risk: 09/24/23 Dental Screening Dental Screen Date: 09/24/23 Did you have a dental visit in the last 12 months?: Yes Did you have a dental problem in the last 6 months where you did not have access to dental care?: No Was dental information given to patient?: Patient has dentist HPI f/u with labs HPI Details 68-year-old lady with impaired fasting g lucose, and hyperlipidemia, here today for follow-up. She has been exercising regularly rides stationary bike, walks daily for at least an hour, and has been compliant with healthy eating habits, stopped drinking soda and eating rice. Recent fasting labs however showed higher fasting glucose and LDL cholesterol as compared to last check. She states that she has not been getting frequent allergy symptoms this spring, takes fexofenadine only as needed. Complains of recurrent right upper quadrant pain, occasionally radiating to right mid back. Patient is s/p laparoscopic cholecystectomy. Denies any relation to food intake, no accompanying nausea or vomiting or change in bowel habits reported. [facility] Medical History (Updated 09/24/23 @ 12:17 by Tiffany Kapoor MD) Impaired fasting glucose Dyslipidemia Family history of diabetes mellitus Difficulty sleeping Witnessed apneic spells Snoring Acquired hypothyroidism Surgical History H/O section Hx laparoscopic cholecystectomy Hx of tonsillectomy Family History Maternal Aunt Mental health disorder Father CAD (coronary artery disease) HTN (hypertension) Mother HTN (hypertension) Sister Diabetes mellitus Social History Housing: House Patient Tobacco Use Status: Never used Tobacco e-Cigarette/Vaping Use: Never Used service: No Current occupational status: retired Cognitive needs: No Hearing needs: No Vision needs: Yes Questionnaire PHQ-9 Over the last 2 weeks, how often have you been bothered by any of the following problems? 1. Little interest or pleasure in doing things: not at all 2. Feeling down, depressed, or hopeless: not at all 3. Trouble falling or staying asleep, or sleeping too much: several days 4. Feeling tired or having little energy: not at all 5. Poor appetite or overeating: not at all 6. Feeling bad about yourself - or that you are a failure or have let yourself or your family down: not at all 7. Trouble concentrating on things, such as reading the newspaper or watching television: not at all 8. Moving or speaking so slowly that other people could have noticed. Or the opposite - being so fidgety or restless that you have been moving around a lot more than usual: not at all 9. Thoughts that you would be better off or of hurting yourself in some way: not at all Total score: 1 Depression Screening Interpretation: Negative Depression Screening Done: Yes 22145 - PHQ-9 Billing: Yes Source: Developed by Drs. Jackson Lerner, Iva Herron, Robert Shi and colleagues, with an educational nissa from [employer]. Thrive Questionnaire Date Thrive assessed: 09/24/23 I am a: Patient What is your living situation today?: I have a steady place to live Within the past 12 months, did the food you bought not last and you didn't have the money to get more?: Never true Within the past 12 months, did you worry whether your food would run out before you got money to buy more?: Never true Do you have trouble paying for medicines?: No Do you have trouble getting transportation to medical appointments?: No Do you have trouble paying your heating and electricity bill?: No Do you have trouble taking care of your child, family member or friend?: No Do you have trouble with day-to-day activities such as bathing, preparing meals, shopping, managing finances, etc.?: No Are you currently unemployed and looking for a job?: No Are you interested in more education?: No THRIVE Score: 0 AUDIT C Alcohol Use Questionnaire (AUDIT-C) 1. How often do you have a drink containing alcohol?: Never 3. How often do you have six or more drinks on one occasion?: Never Total Score: 0 Score Reviewed/Action Taken: No SUZE-7 AMB Questionnaire SUZE-7 Date SUZE - 7 assessed: 09/24/23 Feeling nervous, anxious, or on edge: 0 = Not at all Not being able to stop or control worryin = Not at all Worrying too much about different things: 0 = Not at all Trouble relaxin = Not at all Being so restless that it is hard to sit still: 0 = Not at all Becoming easily annoyed or irritable: 0 = Not at all Feeling afraid as if something awful might happen: 0 = Not at all Total SUZE-7 score (0-4 normal; 5-9 mild; 10-14 moderate; 15-21 severe): 0 Source: Developed by Drs. Jackson Lerner, Iva Herron, Robert Shi and colleagues, with an educational nissa from [employer]. SUZE-7 Assessment Billing SUZE-7 Assessment Tool: SUZE-7 Assessment 58814 Review of Systems Const Denies body aches, Denies fatigue, Denies fever(s) and Denies headache(s) Eyes Reports blurry vision ENT Denies dizziness, Denies headache(s) and Denies nasal discharge Card Denies chest pain, Denies lightheadedness, Denies palpitations and Denies dyspnea Resp Denies chest congestion, Denies cough, Denies dyspnea and Denies wheezing Denies urinary frequency, Denies dysuria and Denies urinary urgency Musc Reports no additional complaints Skin/Breast Denies lesions and Denies rash Neuro Denies dizziness and Denies headache(s) Endo Denies fatigue, Denies polydipsia, Denies polyuria and Denies palpitations Gustabo/Lymph Denies easy bruising Aller/Immun Denies seasonal rhinorrhea and Denies wheezing Physical exam (Primary Care) Vital Signs: Last Vital Signs Pulse 53 09/24/23 11:50 BP 130/90 H 09/24/23 11:50 Pulse Ox 97 09/24/23 11:50 Oxygen Delivery Method Room Air 09/24/23 11:50 BMI result Body Mass Index 29.1 Tobacco/Smoking Status: Tobacco use Status Tobacco use date assessed 09/24/23 09/24/23 11:53 Patient Tobacco Use Status Never used Tobacco 09/24/23 11:48 e-Cigarette/Vaping Use Never Used 09/24/23 11:48 Depression Screening Interpretation: Negative Thrive Assessment: Date of Thrive Assessment Date Thrive assessed 08/28/22 09/24/23 11:48 Const Other: Alert oriented x3, no acute distress noted ambulatory normal gait Orientation/consciousness: patient oriented x3 HENMT Head: Yes atraumatic Ears: hearing grossly normal bilaterally General nose exam: Normal external nose present Face and sinus: Yes face symmetric Mouth: Normal oral and palatal mucosa present, oropharynx normal and moist mucous membranes Eyes General: appearance normal, both eyes and all related structures Neck Other: Thyroid gland nonpalpable, nontender to palpation Neck: Yes full ROM, Yes no lymphadenopathy, Yes no meningeal signs and Yes supple Resp Effort & Inspection: normal respiratory effort and able to speak in complete sentences Auscultation: clear to auscultation bilaterally Cardio Other: S1 S2 present regular rate and rhythm GI Other: Normal bowel sounds, soft, slight tenderness on right upper quadrant with no mass palpated negative Hays's sign General: Yes no CVA tenderness Back/Spine/Pelvis Back: no CVA tenderness and No back tenderness Skin General skin exam: no rashes or lesions noted Neuro General: patient oriented x3, gait normal, tone normal, moves all extremities, Normal light touch and pain sensation, no meningeal signs, no focal motor deficits and CN's II-XI intact bilaterally Extrem General: Yes full ROM, Yes no joint enlargement, Yes no clubbing, cyanosis or edema, Yes no calf tenderness and Yes normal gait Results Reviewed Results Reviewed: Name: Bettie Bowles Age/Sex: 68/F : 1955 Unit#: [id number] Attend Dr: Tiffany Kapoor MD Re09/15/23 Status: DEP REF Location: [facility] Disch: SPEC : [id number] MAXIM: 09/15/23 STATUS: COMP REQ : [id number] RECD: 09/15/[address]: Tiffany Kapoor MD COMP: 09/15/23 ENTERED: 09/15/23 [facility] DR: ORDERED: Met Prof Fast, Lipid Panel, Free T4, TSH Test Result Flag Reference Sodium 140 135-145 mmol/L Potassium 3.9 3.3-5.1 mmol/L CL 107 96-108 mmol/L CO2 25 22-29 mmol/L Gap 12 12-20 BUN 21 H 9-16 mg/dL Creat 0.71 0.5-1.4 mg/dL EGFR > 60 NOTE: For -[place] individuals, multiply the result by 1.210. Chronic Kidney Disease: Estimated GFR < 60 mL/min/1.73m2 Severe Kidney Disease: Estimated GFR < 15 mL/min/1.73m2 FBS 108 H 60-99 mg/dL A fasting glucose from 100-125 mg/dl is considered impaired (pre-diabetes). CA 9.2 8.4-10.2 mg/dL Triglyceride 132 <150 mg/dL Desirable Triglyceride: less than 150 mg/dL Borderline High Triglyceride 150-199 mg/dL High Triglyceride: 200-499 mg/dL Very High Triglyceride: greater than or equal to 5OO mg/dL Cholesterol 209 H <200 mg/dL Desirable Cholesterol: less than 200 mg/dL Borderline High Cholesterol: 200-239 mg/dL High Cholesterol: greater than 239 mg/dL LDL Calculated 138 H <100 mg/dL Desirable LDL: less than 100 mg/dL Near Optimal/Above Optimal LDL: 110-129 mg/dL Borderline High LDL: 130-159 mg/dL High LDL: 160-189 mg/dL Very High LDL: greater than or equal to 190 mg/dL HDL 45 >40 mg/dL Desirable HDL: greater than 40 mg/dL Note: This HDL assay may give artificially low results in patients with liver disease. Free T4 1.15 0.71-1.85 ng/dL TSH 3rd Gen. 1.68 0.32-4.0 uIU/mL Laboratory Tests 09/15/23 08:38 Estimat Average Glucose 128 Hemoglobin A1c % 6.1 H Assessment and Plan Assessment & Plan (1) Right upper quadrant abdominal pain: Code(s): R10.11 - Right upper quadrant pain Plan: Ordered complete abdominal ultrasound (2) Impaired fasting glucose: Code(s): R73.01 - Impaired fasting glucose Plan: Your fasting blood sugars were elevated above 100 mg/dL. Latest hemoglobin A1c is at 6.1%. Impaired glucose metabolism increases the risk for developing diabetes mellitus type 2, as well as heart attack and stroke later on. Lifestyle changes , weight loss, healthy eating habits, and regular exercise are important, and can prevent the progression to diabetes (3) Dyslipidemia: Code(s): E78.5 - Hyperlipidemia, unspecified Plan: Reviewed recent fasting lipid profile with patient with LDL cholesterol higher than last check. Stressed importance of adherence to low-cholesterol diet and regular exercise, at least 30 minutes 3 to 4 times a week. Advised patient to make healthy food choices, eat more fruits, vegetables, whole grains, wild caught fish and low-fat dairy. Limit amount of meat and fried or fatty food products, as well as processed foods and fast foods. Follow-up scheduled with repeat fasting lipid panel in 5 months. (4) Acquired hypothyroidism: Code(s): E03.9 - Hypothyroidism, unspecified Plan: Thyroid levels are within normal limits, continue with current dose of levothyroxine at 75 mcg daily Orders: Orders Hemoglobin A1c 02/22/24 E03.9 - Hypothyroidism, unspecified, E78.5 - Hyperlipidemia, unspecified, R73.01 - Impaired fasting glucose, Z78.0 - Asymptomatic menopausal state Alanine Aminotransferase 02/22/24 E03.9 - Hypothyroidism, unspecified, E78.5 - Hyperlipidemia, unspecified, R73.01 - Impaired fasting glucose, Z78.0 - Asymptomatic menopausal state Lipid Panel 02/22/24 E03.9 - Hypothyroidism, unspecified, E78.5 - Hyperlipidemia, unspecified, R73.01 - Impaired fasting glucose, Z78.0 - Asymptomatic menopausal state US abdomen complete Today R10.11 - Right upper quadrant pain Basic Metabolic Panel Fasting 02/22/24 E03.9 - Hypothyroidism, unspecified, E78.5 - Hyperlipidemia, unspecified, R73.01 - Impaired fasting glucose, Z78.0 - Asymptomatic menopausal state Aspartate Amino Transferase 02/22/24 E03.9 - Hypothyroidism, unspecified, E78.5 - Hyperlipidemia, unspecified, R73.01 - Impaired fasting glucose, Z78.0 - Asymptomatic menopausal state Vitamin D 25-OH Total 11/01/24 E03.9 - Hypothyroidism, unspecified, E78.5 - Hyperlipidemia, unspecified, R73.01 - Impaired fasting glucose, Z78.0 - Asymptomatic menopausal state Thyroid Stimulating Hormone 02/22/24 E03.9 - Hypothyroidism, unspecified, E78.5 - Hyperlipidemia, unspecified, R73.01 - Impaired fasting glucose, Z78.0 - Asymptomatic menopausal state Free T4 (Free Thyroxine) 02/22/24 E03.9 - Hypothyroidism, unspecified, E78.5 - Hyperlipidemia, unspecified, R73.01 - Impaired fasting glucose, Z78.0 - Asymptomatic menopausal state Coding Level of Care Code Est Pt Level 4 (37408) Complex EM visit Add On G2211 Diagnoses Right upper quadrant abdominal pain R10.11 Impaired fasting glucose R73.01 Dyslipidemia E78.5 Acquired hypothyroidism E03.9 Additional Codes SUZE-7 Assessment Billing - SUZE-7 Assessment Tool: SUZE-7 Assessment 24003 ([id number])
[2023-09-24 11:50] VITALS: BP 130/90; PULSE 53; O2SAT 97; BMI 29.1
== END 2023-09-24 12:36 | disposition home or self-care (01) ==
PROVIDERS: PCP Internal Medicine; Visit Provider Internal Medicine
DX: R10.11 Right upper quadrant pain (principal); R73.01 Impaired fasting glucose; E78.5 Hyperlipidemia, unspecified; E03.9 Hypothyroidism, unspecified
CPT/HCPCS: 99214; G2211

== ENCOUNTER 2023-10-01 08:21 | Outpatient (REF) | payer MEDICARE, SELFPAY ==
--- NOTE | ~2023-10-01 | US_ITS ---
EXAMINATION: US ABDOMEN COMPLETE CLINICAL INFORMATION: Right upper quadrant pain. COMPARISON: Ultrasound abdomen 11/19/2007. TECHNIQUE: Real-time imaging of the abdominal viscera. Limited visualization due to bowel gas. FINDINGS: PANCREAS: Limited visualization of pancreatic tail and head. Imaged portion of pancreatic body is unremarkable. ABDOMINAL AORTA: Limited visualization of the proximal aorta. Imaged portions of the mid to distal abdominal aorta are unremarkable. INFERIOR VENA CAVA: Visualized portions are normal. LIVER: Increased hepatic parenchymal heterogeneity and echogenicity could be associated with hepatocellular disease/hepatic steatosis and substantially limits visualization. Correlation with liver function tests and clinical exam recommended to determine further management. GALLBLADDER: Surgically absent. COMMON BILE DUCT: Normal in caliber measuring 0.6 cm in diameter. RIGHT KIDNEY: No hydronephrosis. No renal calculi. Limited visualization. The kidney measures 10.3 cm in maximum dimension. LEFT KIDNEY: Mild hydronephrosis. No renal calculi. Limited visualization. The kidney measures 11.0 cm in maximum dimension. SPLEEN: Normal. The spleen measures 11.6 cm in maximum dimension. FREE FLUID: None. US/US abdomen complete IMPRESSION: 1. Increased hepatic parenchymal heterogeneity and echogenicity could be associated with hepatocellular disease/hepatic steatosis and substantially limits visualization. Correlation with liver function tests and clinical exam recommended to determine further management. 2. Mild left hydronephrosis. No renal calculi. Limited visualization. 3. Gallbladder surgically absent.
== END 2023-10-01 08:22 | disposition home or self-care (01) ==
LOC: HO.HMGCX 08:21
PROVIDERS: PCP Internal Medicine; Visit Provider Internal Medicine
DX: R10.11 Right upper quadrant pain (principal)
CPT/HCPCS: 76700

== ENCOUNTER 2023-10-12 10:37 | Outpatient (AMB) | payer MEDICARE, SELFPAY ==
--- NOTE | 2023-10-12 10:36 | MHC.PC.OV ---
Intake Visit Reasons: sleep/nutrition issues- Android phone Intake Note: Pt is having a telehealth visit to discuss s/eep/nutrition issues Allergies No Known Allergies Allergy (Verified 10/12/23 10:54) Medication List - Last Reconciled 10/12/23 by Tiffany Kapoor MD fexofenadine ([facility]) 180 mg PO DAILY PRN levothyroxine 75 mcg PO DAILY Tobacco use date assessed: 10/12/23 Fall risk assessment: No Falls in past year Last assessed Fall Risk: 10/12/23 Dental Screening Dental Screen Date: 10/24/23 Did you have a dental visit in the last 12 months?: Yes Did you have a dental problem in the last 6 months where you did not have access to dental care?: No Was dental information given to patient?: Patient has dentist HPI sleep/nutrition issues- Android phone HPI Details 68-year-old lady with hypothyroidism, prediabetes, and dyslipidemia, here today for follow-up. Patient states that she has been following a healthy diet, has given up most of her carbs, does not eat rice or pasta, no soda, exercising regularly, ride a bike for an hour 3x a week and walks on other days, but has not been able to lose weight. Recent fasting labs done showed thyroid levels are within normal limits, but fasting glucose is still in the prediabetic range and lipids are still elevated . [facility], [facility] Medical History Impaired fasting glucose Dyslipidemia Family history of diabetes mellitus Difficulty sleeping Witnessed apneic spells Snoring Acquired hypothyroidism Surgical History H/O section Hx laparoscopic cholecystectomy Hx of tonsillectomy Family History Maternal Aunt Mental health disorder Father CAD (coronary artery disease) HTN (hypertension) Mother HTN (hypertension) Sister Diabetes mellitus Social History Housing: House Patient Tobacco Use Status: Never used Tobacco e-Cigarette/Vaping Use: Never Used service: No Current occupational status: retired Cognitive needs: No Hearing needs: No Vision needs: Yes Questionnaire Thrive Questionnaire Date Thrive assessed: 09/24/23 SUZE-7 AMB Questionnaire SUZE-7 Date SUZE - 7 assessed: 09/24/23 Source: Developed by Drs. Jackson Lerner, Iva Herron, Robert Shi and colleagues, with an educational nissa from [employer]. Review of Systems Const Denies body aches, Denies fatigue, Denies fever(s) and Denies headache(s) ENT Denies dizziness, Denies headache(s) and Denies nasal discharge Card Denies chest pain, Denies lightheadedness, Denies palpitations and Denies dyspnea Resp Denies chest congestion, Denies cough, Denies dyspnea and Denies wheezing Denies urinary frequency, Denies dysuria and Denies urinary urgency Musc Reports no additional complaints Skin/Breast Denies lesions and Denies rash Neuro Denies dizziness and Denies headache(s) Endo Denies fatigue, Denies polydipsia, Denies polyuria and Denies palpitations Gustabo/Lymph Denies easy bruising Aller/Immun Denies seasonal rhinorrhea and Denies wheezing Physical exam (Primary Care) Tobacco/Smoking Status: Tobacco use Status Tobacco use date assessed 10/12/23 10/12/23 10:37 Patient Tobacco Use Status Never used Tobacco 10/12/23 10:37 e-Cigarette/Vaping Use Never Used 10/12/23 10:37 Thrive Assessment: Date of Thrive Assessment Date Thrive assessed 09/24/23 10/12/23 10:37 Telehealth Telehealth Telehealth Platform: [facility] Location of provider rendering services: practice address Location of patient: address on file Patient Identification confirmed using: Name, : Yes Telehealth method: video Patient verbally consented to treatment: Yes Patient verbally consented to billing insurance company: Yes Patient informed of any privacy concerns related to visit: Yes Minutes spent on Phone/Video with Pt.: 15 Results Reviewed Results Reviewed: Laboratory Tests 09/15/23 08:38 Estimat Average Glucose 128 Hemoglobin A1c % 6.1 H Name: Bettie Bowles Age/Sex: 68/F : 1955 Unit#: [id number] Attend Dr: Tiffany Kapoor MD Re09/15/23 Status: DEP [facility]F [facility] Disch: SPEC : [id number] MAXIM: 09/15/23 STATUS: COMP REQ : [id number] RECD: 09/15/[address]: Tiffany Kapoor MD COMP: 09/15/23 ENTERED: 09/15/23 [facility] DR: ORDERED: Met Prof Fast, Lipid Panel, Free T4, TSH Test Result Flag Reference Sodium 140 135-145 mmol/L Potassium 3.9 3.3-5.1 mmol/L CL 107 96-108 mmol/L CO2 25 22-29 mmol/L Gap 12 12-20 BUN 21 H 9-16 mg/dL Creat 0.71 0.5-1.4 mg/dL EGFR > 60 NOTE: For -[place] individuals, multiply the result by 1.210. Chronic Kidney Disease: Estimated GFR < 60 mL/min/1.73m2 Severe Kidney Disease: Estimated GFR < 15 mL/min/1.73m2 FBS 108 H 60-99 mg/dL A fasting glucose from 100-125 mg/dl is considered impaired (pre-diabetes). CA 9.2 8.4-10.2 mg/dL Triglyceride 132 <150 mg/dL Desirable Triglyceride: less than 150 mg/dL Borderline High Triglyceride 150-199 mg/dL High Triglyceride: 200-499 mg/dL Very High Triglyceride: greater than or equal to 5OO mg/dL Cholesterol 209 H <200 mg/dL Desirable Cholesterol: less than 200 mg/dL Borderline High Cholesterol: 200-239 mg/dL High Cholesterol: greater than 239 mg/dL LDL Calculated 138 H <100 mg/dL Desirable LDL: less than 100 mg/dL Near Optimal/Above Optimal LDL: 110-129 mg/dL Borderline High LDL: 130-159 mg/dL High LDL: 160-189 mg/dL Very High LDL: greater than or equal to 190 mg/dL HDL 45 >40 mg/dL Desirable HDL: greater than 40 mg/dL Note: This HDL assay may give artificially low results in patients with liver disease. Free T4 1.15 0.71-1.85 ng/dL TSH 3rd Gen. 1.68 0.32-4.0 uIU/mL TSH 3rd Generation ([facility]) Assessment and Plan Assessment & Plan (1) Impaired fasting glucose: Code(s): R73.01 - Impaired fasting glucose Plan: Will start on metformin ER 500 mg per tablet to take 1 tablet at night with supper, continue with adhering to recommended diet and getting regular exercise. Will see her back for follow-up and recheck hemoglobin A1c, lipids and basic metabolic panel in 3 months. (2) Dyslipidemia: Code(s): E78.5 - Hyperlipidemia, unspecified Plan: Fasting lipids still showed elevated LDL cholesterol , continue adhering to recommended diet and regular exercise. (3) Acquired hypothyroidism: Code(s): E03.9 - Hypothyroidism, unspecified Plan: Thyroid levels are within normal limits, continue current dose of levothyroxine 75 mcg daily in a.m. Orders: Orders Hemoglobin A1c 12/23/23 E78.5 - Hyperlipidemia, unspecified, R73.01 - Impaired fasting glucose Lipid Panel 12/23/23 E78.5 - Hyperlipidemia, unspecified, R73.01 - Impaired fasting glucose Basic Metabolic Panel Fasting 12/23/23 E78.5 - Hyperlipidemia, unspecified, R73.01 - Impaired fasting glucose Medications: New metformin ER 500 mg PO QPM 90 tabs 1RF Coding Level of Care Code Tele Est Pt Level 4 (29504) Complex EM visit Add On G2211 Diagnoses Impaired fasting glucose R73.01 Dyslipidemia E78.5 Acquired hypothyroidism E03.9
== END 2023-10-12 15:12 | disposition home or self-care (01) ==
PROVIDERS: PCP Internal Medicine; Visit Provider Internal Medicine
DX: R73.01 Impaired fasting glucose (principal); E78.5 Hyperlipidemia, unspecified; E03.9 Hypothyroidism, unspecified
CPT/HCPCS: 99214; G2211

== ENCOUNTER 2023-12-15 07:14 | Outpatient (REF) | payer MEDICARE, SELFPAY ==
[2023-12-15 11:26] LABS: Estimated Average Glucose 117 mg/dL; Hemoglobin A1c % 5.7 % (<6.0)
[2023-12-15 11:44] LABS: Anion Gap 12 (12-20); Blood Urea Nitrogen 20 mg/dL (9-16); Calcium 9.4 mg/dL (8.4-10.2); Carbon Dioxide 26 mmol/L (22-29); Chloride 106 mmol/L (96-108); Cholesterol 227 mg/dL (<200); Estimated Glomerular Filt Rate > 60; Glucose Fasting 96 mg/dL (60-99); HDL Cholesterol 45 mg/dL (>40); LDL Cholesterol Calculated 148 mg/dL (<100); Potassium 4.1 mmol/L (3.3-5.1); Sodium 140 mmol/L (135-145); Triglycerides 171 mg/dL (<150)
== END 2023-12-15 07:15 | disposition home or self-care (01) ==
LOC: HO.HMGCLDS 07:14
PROVIDERS: PCP Internal Medicine; Visit Provider Internal Medicine
DX: E78.5 Hyperlipidemia, unspecified (principal); R73.01 Impaired fasting glucose
CPT/HCPCS: 36415; 80048; 80061; 83036

== ENCOUNTER 2024-01-04 09:49 | Outpatient (AMB) | payer MEDICARE, SELFPAY ==
--- NOTE | 2024-01-04 09:47 | MHC.PC.OV ---
Intake Visit Reasons: 1M thyroid prediabetes after starting metformin Allergies No Known Allergies Allergy (Verified 01/04/24 09:56) Medication List - Last Reconciled 01/04/24 by Tiffany Kapoor MD diphenhydramine HCl (Benadryl) 25 mg PO BEDTIME PRN fexofenadine (Evita Allergy) 180 mg PO DAILY PRN levothyroxine 75 mcg PO DAILY metformin ER 500 mg PO QPM Tobacco use date assessed: 01/04/24 Fall risk assessment: No Falls in past year Last assessed Fall Risk: 01/04/24 Dental Screening Dental Screen Date: 01/04/24 Did you have a dental visit in the last 12 months?: Yes Did you have a dental problem in the last 6 months where you did not have access to dental care?: No Was dental information given to patient?: Patient has dentist HPI 3M thyroid prediabetes after starting metformin HPI Details 68-year-old lady with prediabetes, started on metformin on last visit, here today for follow-up. She has bee following recommended diet discussed with buckle stringer, and has been staying active. Recent labs showed a hemoglobin A1c now down to 5.7%. Her fasting lipids however showed elevations in triglycerides and LDL cholesterol. Patient states that she has been avoiding a lot of meat products but has been eating eggs for breakfast daily and has been eating cheese, mozzarella sticks for lunch instead of regular food. She however has been feeling well, with no complaints at present time. [facility] Medical History (Updated 01/04/24 @ 10:08 by Tiffany Kapoor MD) Mixed hyperlipidemia Impaired fasting glucose Dyslipidemia Family history of diabetes mellitus Difficulty sleeping Witnessed apneic spells Snoring Acquired hypothyroidism Surgical History H/O section Hx laparoscopic cholecystectomy Hx of tonsillectomy Family History Maternal Aunt Mental health disorder Father CAD (coronary artery disease) HTN (hypertension) Mother HTN (hypertension) Sister Diabetes mellitus Social History Housing: House Patient Tobacco Use Status: Never used Tobacco e-Cigarette/Vaping Use: Never Used service: No Current occupational status: retired Cognitive needs: No Hearing needs: No Vision needs: Yes Questionnaire Thrive Questionnaire Date Thrive assessed: 09/24/23 SUZE-7 AMB Questionnaire SUZE-7 Date SUZE - 7 assessed: 09/24/23 Source: Developed by Drs. Jackson Lerner, Iva Herron, Robert Shi and colleagues, with an educational nissa from [employer]. Review of Systems Const Denies body aches, Denies fatigue, Denies fever(s) and Denies headache(s) ENT Denies dizziness, Denies headache(s) and Denies nasal discharge Card Denies chest pain, Denies lightheadedness, Denies palpitations and Denies dyspnea Resp Denies chest congestion, Denies cough, Denies dyspnea and Denies wheezing GI Reports no additional complaints Denies urinary frequency, Denies dysuria and Denies urinary urgency Musc Reports no additional complaints Skin/Breast Denies lesions and Denies rash Neuro Denies dizziness and Denies headache(s) Endo Denies fatigue, Denies polydipsia, Denies polyuria and Denies palpitations Gustabo/Lymph Denies easy bruising Aller/Immun Denies seasonal rhinorrhea and Denies wheezing Physical exam (Primary Care) Tobacco/Smoking Status: Tobacco use Status Tobacco use date assessed 01/04/24 01/04/24 09:48 Patient Tobacco Use Status Never used Tobacco 01/04/24 09:48 e-Cigarette/Vaping Use Never Used 01/04/24 09:48 Thrive Assessment: Date of Thrive Assessment Date Thrive assessed 09/24/23 01/04/24 09:48 Telehealth Telehealth Telehealth Platform: [facility] Location of provider rendering services: practice address Location of patient: address on file Patient Identification confirmed using: Name, : Yes Telehealth method: video Patient verbally consented to treatment: Yes Patient verbally consented to billing insurance company: Yes Patient informed of any privacy concerns related to visit: Yes Minutes spent on Phone/Video with Pt.: 15 Results Reviewed Results Reviewed: Laboratory Tests 12/15/23 07:24 Estimat Average Glucose 117 Hemoglobin A1c % 5.7 Name: Bettie Bowles Age/Sex: 68/F : 1955 Unit#: [id number] Attend Dr: Tiffany Kapoor MD Re12/15/23 Status: DEP REF Location: [facility] Disch: SPEC : [id number] MAXIM: 12/15/23 STATUS: COMP REQ : [id number] RECD: 12/15/23-[address]: Tiffany Kapoor MD COMP: 12/15/23 ENTERED: 12/15/23 [facility] DR: ORDERED: Met Prof Fast, Lipid Panel Test Result Flag Reference Sodium 140 135-145 mmol/L Potassium 4.1 3.3-5.1 mmol/L CL 106 96-108 mmol/L CO2 26 22-29 mmol/L Gap 12 12-20 BUN 20 H 9-16 mg/dL Creat 0.73 0.5-1.4 mg/dL EGFR > 60 NOTE: For -[place] individuals, multiply the result by 1.210. Chronic Kidney Disease: Estimated GFR < 60 mL/min/1.73m2 Severe Kidney Disease: Estimated GFR < 15 mL/min/1.73m2 FBS 96 60-99 mg/dL CA 9.4 8.4-10.2 mg/dL Triglyceride 171 H <150 mg/dL Desirable Triglyceride: less than 150 mg/dL Borderline High Triglyceride 150-199 mg/dL High Triglyceride: 200-499 mg/dL Very High Triglyceride: greater than or equal to 5OO mg/dL Cholesterol 227 H <200 mg/dL Desirable Cholesterol: less than 200 mg/dL Borderline High Cholesterol: 200-239 mg/dL High Cholesterol: greater than 239 mg/dL LDL Calculated 148 H <100 mg/dL Desirable LDL: less than 100 mg/dL Near Optimal/Above Optimal LDL: 110-129 mg/dL Borderline High LDL: 130-159 mg/dL High LDL: 160-189 mg/dL Very High LDL: greater than or equal to 190 mg/dL HDL 45 >40 mg/dL Desirable HDL: greater than 40 mg/dL Note: This HDL assay may give artificially low results in patients with liver disease. Laboratory Tests 09/15/23 08:38 TSH 1.68 Free T4 1.15 Assessment and Plan Assessment & Plan (1) Impaired fasting glucose: Code(s): R73.01 - Impaired fasting glucose Plan: Her serum glucose levels are better controlled with a hemoglobin A1c at 5.7% currently on metformin ER 500 mg taken once daily at night. Continue with adhering to healthy eating habits, and reminded to do regular exercises. (2) Mixed hyperlipidemia: Code(s): E78.2 - Mixed hyperlipidemia Plan: Discussed results of recent fasting lipid levels with patient, advised to cut back on eating eggs for breakfast switched to doing egg white omelet instead and avoid eating too much cheese, will see her back for follow-up in February, do fasting labs prior to appointment which has already been ordered (3) Acquired hypothyroidism: Code(s): E03.9 - Hypothyroidism, unspecified Plan: Thyroid levels are within normal limits, continued on levothyroxine 75 mcg taken once daily in a.m. Medications: Refilled metformin ER 500 mg PO QPM 90 tabs 1RF Coding Level of Care Code Tele Est Pt Level 4 (08464) Complex EM visit Add On G2211 Diagnoses Impaired fasting glucose R73.01 Mixed hyperlipidemia E78.2 Acquired hypothyroidism E03.9
== END 2024-01-04 13:43 | disposition home or self-care (01) ==
PROVIDERS: PCP Internal Medicine; Visit Provider Internal Medicine
DX: R73.01 Impaired fasting glucose (principal); E78.2 Mixed hyperlipidemia; E03.9 Hypothyroidism, unspecified
CPT/HCPCS: 99214; G2211

== ENCOUNTER 2024-03-26 07:15 | Outpatient (REF) | payer MEDICARE, SELFPAY ==
--- NOTE | ~2024-03-26 | MM_ITS ---
EXAMINATION: MM SCREENING DIGITAL BREAST TOMOSYNTHESIS, 22,23 CLINICAL INFORMATION: Screening. Asymptomatic. COMPARISON: Mammography: Comparison is made with available priors TECHNIQUE: Digital breast mammography with tomosynthesis is performed in both the craniocaudal and mediolateral oblique views along with computer-aided detection (CAD). FINDINGS: The breasts are heterogeneously dense, which may obscure small masses (ACR BI-RADS breast composition Category c). There are no significant masses, abnormal calcifications, or other abnormalities. MM/MM tomosynthesis screening BI IMPRESSION: No mammographic evidence of malignancy. ASSESSMENT: BI-RADS BI-RADS 1 - Negative RECOMMENDATION: Routine annual mammography screening. 1 year F/U This examination should not preclude the clinical evaluation of a suspicious palpable abnormality. This patient's information was entered into a reminder system with a target due date for their next mammogram. Electronically signed by: Whit Apple DO 04/01/2024 09:29 AM PETE
== END 2024-03-26 07:16 | disposition home or self-care (01) ==
LOC: HO.MAMMO 07:15
PROVIDERS: PCP Internal Medicine; Visit Provider Internal Medicine
DX: Z12.31 Encounter for screening mammogram for malignant neoplasm of breast (principal)
CPT/HCPCS: 77063; 77067

== ENCOUNTER → 2024-03-26 07:30 | Outpatient (BNV) | payer MEDICARE, SELFPAY | PROVIDERS: PCP Internal Medicine; Visit Provider Internal Medicine | DX: Z12.31 Encounter for screening mammogram for malignant neoplasm of breast (principal) | CPT/HCPCS: 77063; 77067 ==

== ENCOUNTER 2025-02-06 11:28 | Outpatient (REF) | payer MEDICARE, SELFPAY ==
--- OUTSIDE RECORDS SUMMARY | 2025-02-06 10:30 | XMS_ITS | Encounter Summary ---
Author Organization [employer] Address [address] [facility] [address] [place] [address] Care Team Providers Care Health/Safety Job Titles Name Role Phone Unavailable Primary Care Provider Unavailabl e Encounter Details Date Type Department Care Team (Late st Contact Info) Description 02/06/2025 10:30 AM EDT Office Visit [facility] [address] [place], [place] [phone] [facility] [address] [place], [place] [phone] Prediabetes (Primary Dx); Hypothyroidism, unspecified type; Routine screening for STI (sexually transmitted infection); Elevated blood pressure reading Social History Tobacco Use Types Packs/Day Years Used Date Smoking Tobacco: Never Smokeless Tobacco: Never Tobacco Cessation:Counseling Given: Not Answered Depression Answer Date Recorded Patient Health Questionnaire-9 Score 0 02/06/2025 Patient Health Questionnaire-9 Score 0 02/06/2025 Last PHQ-9: Questionnaire Data Not on file 1 Housing Stability Answer Date Recorded What is your housing situation today? I have conchita fraire 02/06/[address] you li ve. Do you have problems with any of the following? None of the above 02/06/2025 Food Insecurity Answer Date Recorded Within the past 12 months, y ou worried that your food would run out before you got money to buy more: Never True 02/06/2025 Within the past 12 months,th e food you bought just didn't last and you didn't have enough money to get more: Never True Transportation Answer Date Recorded In the past 12 months, has l ack of transportation kept you from medical appts, meetings, work or from getting things needed for daily living? No 02/06/2025 Utilities Answer Date Recorded In the past 12 months, has t he electric, gas, oil or water company threatened to shut off services in your home? No 02/06/2025 Depression Answer Date Recorded Patient Health Questionnaire-2 Score 0 02/06/2025 Internet Access Answer Date Recorded Internet Access Q1 Yes 02/06/2025 Internet Access Q2 Not on file 02/06/2025 Comments Unknown Sex and Gender Information Value Date Recorded Sex Assigned at Female 03/22/2022 2:46 PM EST Legal Sex Female 2:46 PM EST Gender Identity Female 03/22/2022 2:46 PM EST Sexual Orientation Straight 02/06/2025 10 :49 AM EDT Sexual Orientation Don't know 02/06/2025 10 :49 AM EDT documented as of this encounter Last Filed Vital Signs Vital Sign Reading Time Taken Comments Blood Pressure 138/90 02/06/2025 11:12 AM EDT Pulse 64 02/06/2025 11:12 AM EDT Temperature 33.3 C (92 F) 02/06/2025 10:24 AM EDT Respiratory Rate 18 02/06/2025 10:2 4 AM EDT Oxygen Saturation - - Inhaled Oxygen Concentration - - Weight 68.4 kg (150 lb 12.8 oz) 025 10:24 AM EDT Height 154.9 cm (5' 1 ) 02/06/2025 10:2 4 AM EDT Body Mass Index 28.49 02/06/2025 10:24 AM EDT documented in this encounter Functional Status * Over the past 2 weeks, how often have you been bothered by any of the following problems? Question Answer Date of Assessment Author Patient Health Questionnaire-2 Score 0 02/06/2025 12:17 PM EDT Khushbu Hrisch MA * Little interest or pleasure in doing things Answer Date of Assessment Author Not at all 02/06/2025 12:17 PM EDT Khushbu Fuentes MA * Feeling down, depressed, or hopeless Answer Date of Assessment Author Not at all 02/06/2025 12:17 PM EDT Khushbu Fuentes MA * Trouble falling or staying asleep, or sleeping too much Answer Date of Assessment Author Not at all 02/06/2025 12:17 PM EDT Khushbu Fuentes MA * Feeling tired or having little energy Answer Date of Assessment Author Not at all 02/06/2025 12:17 PM EDT Khushbu Fuentes MA * Poor appetite or overeating Answer Date of Assessment Author Not at all 02/06/2025 12:17 PM EDT Khushbu Fuentes MA * Feeling bad about yourself - or that you are a failure or have let yourself or your family down Answer Date of Assessment Author Not at all 02/06/2025 12:17 PM EDT Khushbu Fuentes MA * Trouble concentrating on things, such as reading the newspaper or watching television Answer Date of Assessment Author Not at all 02/06/2025 12:17 PM EDT Khushbu Fuentes MA * Moving or speaking so slowly that other people could have noticed? Or the opposite - being so fidgety or restless that you have been moving around a lot more than usual. Answer Date of Assessment Author Not at all 02/06/2025 12:17 PM EDT Khushbu Fuentes MA * Thoughts that you would be better off or hurting yourself in some way Answer Date of Assessment Author Not at all 02/06/2025 12:17 PM EDT Khushbu Fuentes MA * Patient Health Questionnaire-9 Score Answer Date of Assessment Author 0 02/06/2025 12:17 PM EDT Khushbu Fuentes MA * Over the last 2 weeks, how often have you been bothered by any of the following problems? Question Answer Date of Assessment Author Feeling nervous, anxious, or on edge 0 02/06/2025 12:17 PM EDT Khushbu Gonzalez MA Not being able to stop or control worrying 0 02/06/2025 12:17 PM EDT Khushbu Gonzalez MA Worrying too much about different things 0 02/06/2025 12:17 PM EDT Khushbu Gonzalez MA Trouble relaxing 0 02/06/2025 12:17 PM EDT Khushbu Gonzalez MA Being so restless that it is hard to sit still 0 02/06/2025 12:17 PM EDT Khushbu Gonzalez MA Becoming easily annoyed or irritable 0 02/06/2025 12:17 PM EDT Khushbu Gonzalez MA Feeling afraid as if something awful might happen 0 02/06/2025 12:17 PM EDT Khushbu Smyth MA SUZE-7 Total Score 0 02/06/2025 12:17 PM EDT Khushbu Gonzalez MA documented as of this encounter Plan of Treatment Upcoming Encounters Date Type Department Care Team (Late st Contact Info) Description 02/19/2025 9:30 AM EDT Clinical Support [facility] [address] [place] [phone] Scheduled Orders Name Type Priority Associated Diagnoses Orde r Schedule Lipid Panel, Standard Lab Routine Prediabetes Expected: 02/06/2025 (Approximate), Expires: 02/06/2026 Hemoglobin A1c Lab Routine Prediabetes Expected: 02/06/2025 (Approximate), Expires: 02/06/2026 Comprehensive Metabolic Panel Lab Routine Prediabetes Expected: 02/06/2025 (Approximate), Expires: 02/06/2026 TSH W/Reflex to FT4 Lab Routine Hypothyroidism, unspecified type Expected: 02/06/2025 (Approximate), Expires: 02/06/2026 Hepatitis A,B,C Profile Lab Routine Routine screening for STI (sexually transmitted infection) Expected: 02/06/2025, Expires: 02/06/2026 HIV-1/2 Antigen and Antibodies, Fourth Generation, with Reflexes Lab Routine Routine screening for STI (sexually transmitted infection) Expected: 02/06/2025 (Approximate), Expires: 02/06/2026 Syphilis Screen Lab Routine Routine screening for STI (sexually transmitted infection) Expected: 02/06/2025, Expires: 02/06/2026 documented as of this encounter Procedures Procedure Name Priority Date/Time Associated Diagnosis Comments CBC WITH AUTO DIFFERENTIAL Routine 02/06/2025 11:39 AM EDT Prediabetes documented in this encounter Results * CBC auto differential (02/06/2025 11:39 AM EDT) White Blood Count 5.5 4.8 - 10.8 X10*3/uL [facility] Red Blood Count 4.86 4.20 - 5.50 X10*6/uL [facility] Hemoglobin 14.5 12.0 - 16.0 g/dl [facility] Hematocrit 43.9 37.0 - 47.0 % [facility] Mean Corpuscular Volume 90.3 80.0 - 98.0 fL [facility] Mean Corpuscular Hemoglobin 29.8 27.0 - 33.0 pg [facility] Mean Corpuscular HGB Conc 33.0 31.0 - 35.0 g/dl [facility] Red Cell Distribution Width 12.8 11.0 - 16.0 % [facility] Platelet Count 347 160 - 400 X10*3/uL [facility] Mean Platelet Volume 9.9 9.4 - 12.3 fL [facility] Neutrophils Percent Auto 53.1 45 - 73 % [facility] Imm Gran Pct Auto 0.4 0.0 - 0.4 % [facility] Lymphocytes Percent Auto 34.1 20 - 40 % [facility] Monocytes Percent Auto 8.9 2 - 11 % [facility] Eosinophils Percent Auto 2.4 0 - 4 % [facility] Basophils Percent Auto 1.1 0 - 2 % [facility] NRBC Pct Auto 0.0 0.0 - 0.2 /100WBC [facility] Neutrophils Absolute Auto 2.9 2.0 - 8.3 x10*3/uL [facility] Imm Gran Abs Auto 0.02 0.00 - 0.03 X10*3/uL [facility] Lymphocytes Absolute Auto 1.9 1.2 - 4.9 X10*3/uL [facility] Monocytes Absolute Auto 0.5 0.1 - 1.2 X10*3/uL [facility] Eosinophils Absolute Auto 0.1 0.0 - 0.4 X10*3/uL [facility] Basophils Absolute Auto 0.1 0.0 - 0.2 X10*3/uL [facility] NRBC Abs Auto 0.000 0.0 - 0.012 X10*3/uL [facility] Blood Venous blood specimen / Unknown 02/06/2025 11:39 AM EDT 02/06/2025 12:58 PM EDT [facility] [employer] LAB BLOOD ORDERABLES Final Re sult [facility] [address] [place] [phone] [phone] documented in this encounter Visit Diagnoses Diagnosis Prediabetes- Primary Other abnormal glucose Hypothyroidism, unspecified type Routine screening for STI (sexually transmitted infection) Screening examination for venereal disease Elevated blood pressure reading Elevated blood pressure reading without diagnosis of hypertension documented in this encounter Additional Health Concerns Assessment Noted Time PHQ-9 Depression Total Score: 0 02/07/20 25 12:17 PM EDT documented as of this encounter
[2025-02-06 13:01] LABS: MANUAL DIFF FLAG NO
[2025-02-06 13:55] LABS: Hematocrit 43.9 % (37.0-47.0); Hemoglobin 14.5 g/dl (12.0-16.0); Imm Gran Abs Auto 0.02 X10*3/uL (0.00-0.03); Imm Gran Pct Auto 0.4 % (0.0-0.4); Lymphocytes Absolute Auto 1.9 X10*3/uL (1.2-4.9); Mean Corpuscular HGB Conc 33.0 g/dl (31.0-35.0); Mean Corpuscular Hemoglobin 29.8 pg (27.0-33.0); Mean Corpuscular Volume 90.3 fL (80.0-98.0); NRBC Abs Auto 0.000 X10*3/uL (0.0-0.012); NRBC Pct Auto 0.0 /100WBC (0.0-0.2); Platelet Count 347 X10*3/uL (160-400); Red Blood Count 4.86 X10*6/uL (4.20-5.50); White Blood Count 5.5 X10*3/uL (4.8-10.8)
--- OUTSIDE RECORDS SUMMARY | 2025-02-06 14:14 | XMS_ITS | Clinical Summary ---
Author Organization [employer] Address [address] [facility] 7 [place] [address] Care Team Providers Care Behavioral Intervention Specialist Name Role Phone Unavailable Primary Care Provider Unavailabl e Allergies No known active allergies Medications Blood Pressure kitIndications: Elevated blood pressure reading Use as directed 1 kit 02/06/2025 Active Active Problems No known active problems Encounters Date Type Department Care Team Description 02/06/2025 10:30 AM EDT Office Visit [facility] [address] [place] [phone] Mag Lynne FNP Prediabetes (Primary Dx); Hypothyroidism, unspecified type; Routine screening for STI (sexually transmitted infection); Elevated blood pressure reading 02/06/2025 Travel 02/05/2025 Telephone [facility] [address] [place] [phone] aMg Lynne FNP chart prep 01/30/2025 Patient Outreach [facility] [address] [place] [phone] Mag Lynne FNP Pre-visit Planning (SDOH Screening negative and Tobacco screening negative) from Last 3 Months Social History Tobacco Use Types Packs/Day Years [...] Don't know 02/06/2025 10 :49 AM EDT Last Filed Vital Signs Vital Sign Reading [...] Mass Index 28.49 02/06/2025 10:24 AM EDT Plan of Treatment Upcoming Encounters Date Type Department Care Team (Late st Contact Info) Description 02/19/2025 9:30 AM EDT Clinical Support [facility] [address] [place] [address] Health Maintenance Due Date Last Done Comments CT Colonography 1955 Colonoscopy 1955 Colorectal Cancer Screening 1955 Diabetes: Hemoglobin A1C 1955 FIT DNA/Cologuard 1955 FIT 1955 FOBT 1955 Sigmoidoscopy 1955 Hepatitis C Screening 1971 DTaP/Tdap/Td Vaccines (1 - Tdap) 1972 Mammogram 1993 Pneumococcal Vaccine: 50+ Years (1 of 1 - PCV) 2003 Zoster Vaccines (1 of 2) 2003 COVID-19 Vaccine (4 - season) 2024 02/04/2021, 08/04/2020, 07/14/2020 Influenza Vaccine (#1) 2024 , 02/21/2021, 02/07/2019, Additional history exists Alcohol/Substance Use Screening 02/06/2026 02/06/2025 Depression Screening 02/06/2026 02/06/2025, 02/07/20 25 SDOH Screening 02/06/2026 02/06/2025 Tobacco Screening 02/06/2026 02/06/2025 RSV Patients and Patients Aged 60 years or older (1 - 1-dose 75+ series) 2028 HIB Vaccines Aged Out No longer eligi ble based on patient's age to complete this topic HPV Vaccines Aged Out No longer eligi ble based on patient's age to complete this topic Hepatitis A Vaccines Aged Out No long er eligible based on patient's age to complete this topic Hepatitis B Vaccines Aged Out No long er eligible based on patient's age to complete this topic IPV Vaccines Aged Out No longer eligi ble based on patient's age to complete this topic Meningococcal B Vaccine Aged Out No l onger eligible based on patient's age to complete this topic Meningococcal Vaccine Aged Out No elio courtney eligible based on patient's age to complete this topic RSV under 20 months Aged Out No longe r eligible based on patient's age to complete this topic Rotavirus Vaccines Aged Out No longer eligible based on patient's age to complete this topic Procedures Procedure Name Priority Date/Time Associated Diagnosis Comments CBC WITH AUTO DIFFERENTIAL Routine 02/06/2025 11:39 AM EDT Prediabetes from Last 3 Months Results * CBC auto differential (02/06/2025 11:39 AM EDT) White Blood Count 5.5 4.8 - 10.8 X10*3/uL [facility] Red Blood Count 4.86 4.20 - 5.50 X10*6/uL [facility] Hemoglobin 14.5 12.0 - 16.0 g/dl [facility] Hematocrit 43.9 37.0 - 47.0 % [facility] Mean Corpuscular Volume 90.3 80.0 - 98.0 fL [facility] Mean Corpuscular Hemoglobin 29.8 27.0 - 33.0 pg [facility] Mean Corpuscular HGB Conc 33.0 31.0 - 35.0 g/dl [facility] Red Cell Distribution Width 12.8 11.0 - 16.0 % [facility] Platelet Count 347 160 - 400 X10*3/uL [facility] Mean Platelet Volume 9.9 9.4 - 12.3 fL [facility] Neutrophils Percent Auto 53.1 45 - 73 % [facility] Imm Gran Pct Auto 0.4 0.0 - 0.4 % [facility] Lymphocytes Percent Auto 34.1 20 - 40 % [facility] Monocytes Percent Auto 8.9 2 - 11 % [facility] Eosinophils Percent Auto 2.4 0 - 4 % [facility] Basophils Percent Auto 1.1 0 - 2 % [facility] NRBC Pct Auto 0.0 0.0 - 0.2 /100WBC [facility] Neutrophils Absolute Auto 2.9 2.0 - 8.3 x10*3/uL [facility] Imm Gran Abs Auto 0.02 0.00 - 0.03 X10*3/uL [facility] Lymphocytes Absolute Auto 1.9 1.2 - 4.9 X10*3/uL [facility] Monocytes Absolute Auto 0.5 0.1 - 1.2 X10*3/uL [facility] Eosinophils Absolute Auto 0.1 0.0 - 0.4 X10*3/uL [facility] Basophils Absolute Auto 0.1 0.0 - 0.2 X10*3/uL [facility] NRBC Abs Auto 0.000 0.0 - 0.012 X10*3/uL [facility] Blood Venous blood specimen / Unknown 02/06/2025 11:39 AM EDT 02/06/2025 12:58 PM EDT [facility] [employer] LAB BLOOD ORDERABLES Final Re sult [facility] [address] [place] [address] [phone] from Last 3 Months Insurance [facility] MEDICARE ADVANTAGE
--- OUTSIDE RECORDS SUMMARY | 2025-02-06 14:14 | XMS_ITS | Encounter Summary ---
Author Organization [employer] Address [address] [facility] [address] [place] [address] Care Team Providers Care Development Disability Specialist Name Role Phone Unavailable Primary Care Provider Unavailabl e Reason for Visit * Reason Onset Date Comments chart prep 02/05/2025 Encounter Details Date Type Department Care Team (Late st Contact Info) Description 02/05/2025 Telephone [facility] [address] [place], [place] [phone] [facility] [address] [place], [place] [phone] chart prep Social History Tobacco Use Types Packs/Day Years Used Date Smoking Tobacco: Never Assessed Depression Answer Date Recorded Patient Health Questionnaire-9 [...] AM EDT documented as of this encounter Miscellaneous Notes * Telephone Encounter - Khushbu Gonzalez MA - 02/05/2025 10:32 AM EDT Chart Prep Labs: not applicable Images: not applicable Referrals: not applicable Vaccines due: Covid, Flu, PCV20, Tdap, and Zoster Screenings: colonoscopy and mammogram Overdue care gaps: SBIRT, SDOH, PHQ-9, and SUZE-7 documented in this encounter Plan of Treatment Upcoming Encounters Date Type Department Care Team (Late st Contact Info) Description 02/19/2025 9:30 AM EDT Clinical Support [facility] [address] [place] [phone] documented as of this encounter Visit Diagnoses Not on filedocumented in this encounter
--- OUTSIDE RECORDS SUMMARY | 2025-02-06 14:14 | XMS_ITS | Patient Health Record ---
Author Organization [facility] Address [address] [place] [address] Care Team Providers Care Certified Phlebotomy Technician Name Role Phone Balbir Quigley Primary Care Provider Unavailab Jackson Matta Unavailable [phone] Reason For Referral No Information Medications Medication SIG (Take, Route, Fr equency, Duration) Notes Start Date End Date Status Lisinopril 5 MG TAKE 1 TABLET BY PARDEEP TH EVERY DAY Orally Once a day Active Doxepin HCl 10 MG TAKE 2 CAPSULES BY M OUTH AT BEDTIME Oral QHS Active Immunizations Vaccine Route Administration Date Status Comme nts Influenza Unknown 02/03/2018 Administered Social History Tobacco Use: Social History Observation Description Date Details (start date - stop date) Never Smoker NA - NA Tobacco Use/Smoking Question Answer Notes Patient is a nonsmoker Alcohol Screen Question Answer Notes Did you have a drink contain ing alcohol in the past year? Yes How often did you have a dri nk containing alcohol in the past year? Monthly or less (1 point) How many drinks did you have on a typical day when you were drinking in the past year? 1 or 2 drinks (0 point) How often did you have 6 or more drinks on one occasion in the past year? Never (0 point) Points 1 Interpretation Negative Section Notes: Nonsmoker; no sig alcohol Problems Problem Type SNOMED Code ICD Code Onset Dates Problem Status W/U Status Risk Notes Problem Screening for malignant neoplasm of colon (714900210) Encounter for screening for malignant neoplasm of colon (Z12.11) Active confirmed Problem Preprocedural examination (238075179789290) Preprocedural examination (Z01.818) Active confirmed Plan Of Treatment Future Test Test Name Order Date COLONOSCOPY 04/10/2018 Insurance Providers Payer Name Payer Address Payer Phone Subscriber Number Group Number Insured Name Patient Relationship to Insured Coverage Start Date Coverage End Date [employer] [address] [place] [address] [phone] [id number] FERDINAND HATCH Self - patient is the insured Medical (General) History Medical History History ICD Code Denies OH,DM,CVA,Lung disease,renal dise ase HTN Negative colonoscopy in 2006 --asc. colon lipoma--biopsy showed only hyperplastic tissue Fatty liver--neg. w/u in 2007 and F/U LF T's were normal--no biopsy was done Surgical History Surgery Date(Month/Year) C-sections x3 Cholecystectomy Tonsillectomy
--- OUTSIDE RECORDS SUMMARY | 2025-02-06 14:14 | XMS_ITS | Encounter Summary ---
Author Organization [employer] Address [address] [facility] [address]t [place] [address] Care Team Providers Care Behavioral Health Technician Name Role Phone Unavailable Primary Care Provider Unavailabl e Encounter Details Date Type Department Care Team (Latest Contact Info) Description 02/06/2025 Travel Social History Tobacco Use Types Packs/Day Years Used Date Smoking Tobacco: Never Smokeless Tobacco: Never Depression Answer Date Recorded Patient Health Questionnaire-9 [...] AM EDT documented as of this encounter Functional Status * Over the past 2 weeks, how often have you been bothered by any of the following problems? Question Answer Date of Assessment Author Patient Health Questionnaire-2 Score 0 02/06/2025 12:17 PM EDT Khushbu Hirsch MA * Little interest or pleasure in [...] Description 02/19/2025 9:30 AM EDT Clinical Support [facility] [address] [place] [address] documented as of this encounter Visit Diagnoses Not on filedocumented in this encounter Additional Health Concerns Assessment Noted Time PHQ-9 Depression Total Score: 0 02/07/20 25 12:17 PM EDT documented as of this encounter
[2025-02-06 14:18] LABS: Cholesterol 240 mg/dL (<200); HDL Cholesterol 46 mg/dL (>40); Triglycerides 121 mg/dL (<150)
[2025-02-06 16:04] LABS: Total Hemoglobin (HGBA1C) 3805.1252 umol/L
[2025-02-06 17:04] LABS: Alanine Aminotransferase 34 U/L (0-31); Albumin Level 4.3 g/dL (3.5-5.0); Alkaline Phosphatase 96 U/L (39-117); Anion Gap 12 (12-20); Aspartate Amino Transferase 28 U/L (5-31); Blood Urea Nitrogen 17 mg/dL (9-16); Calcium 9.2 mg/dL (8.4-10.2); Carbon Dioxide 26 mmol/L (22-29); Chloride 106 mmol/L (96-108); Cholesterol 238 mg/dL (<200); Estimated Glomerular Filt Rate > 60; HDL Cholesterol 46 mg/dL (>40); Potassium 3.9 mmol/L (3.3-5.1); Sodium 140 mmol/L (135-145); Total Protein 7.0 g/dL (6.5-8.0); Triglycerides 119 mg/dL (<150)
[2025-02-06 17:26] LABS: Free T4 (Free Thyroxine) 0.98 ng/dL (0.71-1.85); Thyroid Stimulating Hormone 3.10 uIU/mL (0.32-4.0)
[2025-02-07 09:19] LABS: Syphilis Screen Nonreactive (Nonreactive)
[2025-02-07 09:34] LABS: HBS Num1 0.30 mIU/mL (0-7.99); HBc Num1 0.08 S/CO (0.00-0.79); HBsAGNum1 0.61 S/CO (0.00-0.99); HIV Num 1 0.05 S/CO (0.00-0.99); Hepatitis A Antibody IgM 0.34 Index (0-0.79); Hepatitis B Surface Antigen Negative (Negative); ~HepC Num1 0.12 S/CO (0.00-0.79); ~Hepatitis A Antibody IgM Nonreactive (Nonreactive); ~Hepatitis B Surface Antibody NONREACTIVE (Nonreactive); ~Hepatitis C Antibody Nonreactive (Nonreactive)
== END 2025-02-06 11:29 | disposition home or self-care (01) ==
LOC: HO.HHCL 11:28
PROVIDERS: Internal Medicine; PCP Internal Medicine; Visit Provider Registered Nurse
DX: Z11.4 Encounter for screening for human immunodeficiency virus [HIV] (principal); E78.5 Hyperlipidemia, unspecified; E03.9 Hypothyroidism, unspecified; R73.03 Prediabetes; R73.01 Impaired fasting glucose; Z78.0 Asymptomatic menopausal state; Z13.21 Encounter for screening for nutritional disorder
CPT/HCPCS: 36415; 80048; 80053; 80061; 82306; 83036; 84439; 84443; 85025; 86704; 86706; 86709; 86780; 86803; 87340; 87389

== ENCOUNTER 2025-04-01 07:33 | Outpatient (REF) | payer MEDICARE, SELFPAY ==
--- NOTE | ~2025-04-01 | MM_ITS ---
EXAMINATION: MM SCREENING DIGITAL BREAST TOMOSYNTHESIS, BILATERAL CLINICAL INFORMATION: Screening. Asymptomatic. COMPARISON: Comparison made to multiple prior, most recent March 26, 2024, and most remote February 29, 2012. TECHNIQUE: Digital breast tomosynthesis is performed in mediolateral oblique and craniocaudal views along with computer-aided detection (CAD). Synthesized 2D images are generated from the tomosynthesis. FINDINGS: BREAST COMPOSITION: The breasts are heterogeneously dense, which may obscure small masses. BILATERAL BREASTS: No significant masses, suspicious calcifications or other abnormalities are seen in either breast. MM/MM tomosynthesis screening BI IMPRESSION: BILATERAL BREASTS: Negative, no mammographic evidence of malignancy. Normal interval follow-up is recommended in 12 months. ASSESSMENT: BI-RADS: Category 1: Negative RECOMMENDATION: Routine annual mammography screening. FOLLOW-UP: 1 year F/U This examination should not preclude the clinical evaluation of a suspicious palpable abnormality. This patient's information was entered into a reminder system with a target due date for their next mammogram. Electronically signed by: Kenji Bateman MD 04/01/2025 06:45 PM [facility]
--- OUTSIDE RECORDS SUMMARY | 2025-04-01 07:47 | XMS_ITS | Encounter Summary ---
Author Organization [employer] Address [address] [facility] [address] [place] [address] Care Team Providers Care Helmet Hat Brim Cutter Name Role Phone Shirley, [facility] Primary Care Provider [phone] Encounter Details Date Type Department Care Team ([facility] st Contact Info) Description 02/06/2025 Results Follow-Up [facility] [address] [place] [address] Shirley Mag, [facility] [address] [place] [address] Lipid Panel, Standard, CBC auto differential, TSH W/Reflex to FT4, Additional followed-up results: 5 Social History Tobacco Use Types Packs/Day Years [...] Questionnaire-2 Score 0 02/06/2025 12:17 PM EDT Khsuhbu Hirsch MA * Little interest or pleasure [...] MA Trouble relaxing 0 02/06/2025 12:17 PM DIMITRYT Khushbu Gonzalez MA Being so restless that it is hard to sit still 0 02/06/2025 12:17 PM EDT Khushbu Gonzalez MA Becoming easily annoyed or irritable 0 02/06/2025 12:17 PM DIMITRYT Khushbu Gonzalez MA Feeling afraid as if something awful might happen 0 02/06/2025 12:17 PM EDT Khushbu Smyth MA SUZE-7 Total Score 0 02/06/2025 12:17 PM EDKhushbu Potts MA documented as of this encounter Plan of Treatment Upcoming Encounters Date Type Department Care Team (Late st Contact Info) Description 06/01/2025 11:15 AM EST Office Visit [facility] [address] [place] [address] Mag Lynne FNP [address] [place] [address] documented as of this encounter Visit Diagnoses Not on filedocumented in this encounter Additional Health Concerns Assessment Noted Time PHQ-9 Depression Total Score: 0 02/07/20 12:17 PM EDT documented as of this encounter Care Teams Helmet Hat Brim Cutter Relationship Specialty Start Date End Date Mag Lynne FNP [address] [place] [address] PCP - General Family Medicine 02/17/25 documented as of this encounter
--- OUTSIDE RECORDS SUMMARY | 2025-04-01 07:47 | XMS_ITS | Clinical Summary ---
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 Encounters Date Type Department Care Team Description 02/23/2025 3:30 PM EST Telemedicine [facility] [address] [place] [phone] Mag Lynne FNP Prediabetes (Primary Dx); 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; Mixed hyperlipidemia; Dietary counseling; Exercise counseling 02/23/2025 Travel 02/19/2025 9:30 AM EDT Clinical Support [facility] [address] [place] [phone] Annie Braxton RN Elevated blood pressure reading 02/19/2025 Travel 02/06/2025 10:30 AM EDT Office Visit [facility] [address] [place] [phone] Mag Lynne FNP Elevated blood pressure reading (Primary Dx); Prediabetes; Hypothyroidism, unspecified type; Routine screening for STI (sexually transmitted infection) 02/06/2025 Orders Only GENERIC EXTERNAL DATA DEPARTMENT Provider, Generic External Data 02/06/2025 Results Follow-Up [facility] [address] [place] [phone] Mag Lynne FNP Lipid Panel, Standard, CBC auto differential, TSH W/Reflex to FT4, Additional followed-up results: 5 02/06/2025 Travel 02/05/2025 Telephone [facility] [address] [place] [address] Mag Lynne FNP chart prep 01/30/2025 Patient Outreach [facility] [address] [place] [address] Mag Lynne FNP Pre-visit Planning (SDOH Screening [...] Sign Reading Time Taken Comments Blood Pressure 142/72 02/19/2025 9:54 AM EDT Pulse 64 02/19/2025 9:53 AM EDT Temperature 33.3 C (92 F) 02/06/2025 10:24 AM EDT Respiratory Rate 18 02/19/2025 9:53 AM EDT Oxygen Saturation 97% 02/19/2025 9:53 AM EDT Room air Inhaled Oxygen Concentration - - Weight 69.6 kg (153 lb 6.4 oz) 02/19/2025 9:53 A M EDT Height 154.9 cm (5' 1 ) 02/06/2025 10:24 AM EDT Body Mass Index 28.98 02/06/2025 10:24 AM EDT Plan of Treatment Upcoming Encounters Date Type Department Care Team (Late st Contact Info) Description 06/01/2025 11:15 AM EST Office Visit [facility] [address] [place] [address] [facility] [address] [place] [address] Health Maintenance Due Date Last Done Comments CT Colonography 1953 Colonoscopy 1953 Colorectal Cancer Screening 1953 FIT DNA/Cologuard 1953 FIT 1953 FOBT 1953 Sigmoidoscopy 1953 DTaP/Tdap/Td Vaccines (1 - Tdap) 1972 Mammogram 1993 Pneumococcal Vaccine: 50+ Years (1 of 1 - PCV) 2003 Zoster Vaccines (1 of 2) 2003 COVID-19 Vaccine (4 - season) 2024 02/04/2021, 08/04/2020, 07/14/2020 Influenza Vaccine (#1) 2024 2, 02/21/2021, 02/07/2019, Additional history exists Alcohol/Substance Use Screening 02/06/2026 02/06/2025 Depression Screening 02/06/2026 02/06/2025, 02/07/20 Diabetes: Hemoglobin A1C 02/06/2026 02/06/2025, 01/21 SDOH Screening 02/06/2026 02/06/2025 Tobacco Screening 02/27/2026 02/27/2025 RSV Patients and Patients Aged 60 years or older (1 - 1-dose 75+ series) 2028 Hepatitis C Screening Completed 02/06/2025 HIB Vaccines Aged Out No longer eligi [...] Procedure Name Priority Date/Time Associated Diagnosis Comments TSH Routine 02/06/2025 11:39 AM EDT T4, FREE Routine 02/06/2025 11:39 AM EDT VITAMIN D,25-OH,TOTAL,IA Routine 02/06/2025 11:39 AM EDT LIPID PANEL, STANDARD Routine 02/06/2025 11:39 AM EDT BASIC METABOLIC PANEL, FASTING Routine 02/06/2025 11:39 AM EDT HEMOGLOBIN A1C Routine 02/06/2025 11:39 AM EDT SYPHILIS SCREEN Routine 02/06/2025 11:39 AM EDT Routine screening for STI (sexually transmitted infection) HIV 1/2 ANTIGEN/ANTIBODY, FOURTH GENERATION W/RFL Routine 02/06/2025 11:39 AM EDT Routine screening for STI (sexually transmitted infection) HEPATITIS PANEL, GENERAL Routine 02/06/2025 11:39 AM EDT Routine screening for STI (sexually transmitted infection) TSH W/REFLEX TO FT4 Routine 02/06/2025 1 1:39 AM EDT Hypothyroidism, unspecified type CBC WITH AUTO DIFFERENTIAL Routine 02/06/2025 11:39 AM EDT Prediabetes COMPREHENSIVE METABOLIC PANEL Routine 02/06/2025 11:39 AM EDT Prediabetes HEMOGLOBIN A1C Routine 02/06/2025 11:39 AM EDT Prediabetes LIPID PANEL, STANDARD Routine 02/06/2025 11:39 AM EDT Prediabetes from Last 3 Months Results * Syphilis Screen (02/06/2025 11:39 AM EDT) Pathologist [facility] Syphilis Screen Nonreactive Nonreactive [facility] Blood 02/06/2025 11:3 9 AM EDT 02/06/2025 1:04 PM EDT [facility] CALL WORKER LAB BLOOD ORDERABLES Final Re sult [facility] [address] [place] [phone] * (ABNORMAL) Basic Metabolic Panel, Fasting (02/06/2025 11:39 AM EDT) Glucose Fasting 106(H) 60 - 99 mg/dL [facility] Comment:A fasting glucose fr om 100-125 mg/dl is considered impaired(pre-diabetes). 02/06/2025 11:3 9 AM EDT 02/06/2025 1:04 PM EDT us Generic External Data Provider LAB BLOOD ORDERAB LES Final Result Performing Organization Address [facility]/ZIP Co de Phone Number [facility] [address] [place] [address] [phone] * Vitamin D, 25-Hydroxy, Total, Immunoassay (02/06/2025 11:39 AM EDT) Vitamin D 25-OH Total 37.2 >30 ng/mL [facility] Comment: Health Based Reference Values*< 20 ng/mL Pbkxoscrh22-78 ng/mL Insufficient> 30 ng/mL Sufficient*Graciela MCKEE. N Engl J Med. 2007;357:266-280There is no well-established upper level of normal vitamin Dlevels. Some laboratories use 50 ng/mL as an upper limit ofnormal. However, toxicity is patient-dependent and may occurat any level. Careful correlation with the patient'spresentation is necessary and, if there is concern forvitamin D toxicity, treatment should be consideredirrespective of the serum level.Care must be taken in interpreting Vitamin D results fromdifferent laboratories and methodologies. Published datademonstrated that results from patients undergoinghemodialysis may show a negative bias when tested withvarious automated 25-OH vitamin D assays when compared toLC-MS/MS.When testing samples from patients whose predominant form ofVitamin D is Vitamin D2, such as patients receiving VitaminD2 supplementation, results that are subtherapeutic shouldbe confirmed with another method such as LC-MS/MS. 02/06/2025 11:3 9 AM EDT 02/06/2025 1:04 PM EDT us Generic External Data Provider LAB BLOOD ORDERAB LES Final Result Performing Organization Address [facility]/ZIP Co de Phone Number [facility] [address] [place] [address] [phone] * TSH W/Reflex to FT4 (02/06/2025 11:39 AM EDT) TSH reflex Free T4 3.25 0.32 - 4.0 uIU/mL [facility] Blood Venous blood specimen / Unknown 02/06/2025 11:39 AM EDT 02/06/2025 1:04 PM EDT [facility] LAB BLOOD ORDERABLES Final Re sult Performing Organization Address [facility] de Phone Number [facility] [address] [place] [phone] * Hepatitis A,B,C Profile (02/06/2025 11:39 AM EDT) Hepatitis A IgM Nonreactive Nonreactive [facility] Comment:IgM antibodies to SUMMERS V not detected; does not exclude earlyacute or recovered HAV infection. ~Hepatitis B Surface Antibody NONREACTIVE Nonreactive [facility] Comment:Nonreactive: < 8.00 mIU/mL Hepatitis B Core Antibody Nonreactive Nonreactive [facility] Hepatitis C Antibody Nonreactive Nonreactive [facility] Comment:Antibodies to HCV no t detected; does not exclude early acuteHCV infection. Hepatitis B Surface Ag Negative Negative [facility] Blood Venous blood specimen / Unknown 02/06/2025 11:39 AM EDT 02/06/2025 12:58 PM EDT [facility] LAB BLOOD ORDERABLES Final Re sult Performing Organization Address [facility] de Phone Number [facility] [address] [place] [phone] * CBC auto differential (02/06/2025 11:39 AM EDT) White Blood Count 5.5 4.8 - 10.8 X10*3/uL [facility] Red Blood Count 4.86 4.20 - 5.50 X10*6/uL [facility] Hemoglobin 14.5 12.0 - 16.0 g/dl [facility] Hematocrit 43.9 37.0 - 47.0 % [facility] Mean Corpuscular Volume 90.3 80.0 - 98.0 fL [facility] Mean Corpuscular Hemoglobin 29.8 27.0 - 33.0 pg [facility] Mean Corpuscular HGB Conc 33.0 31.0 - 35.0 g/dl [facility] Red Cell Distribution Width 12.8 11.0 - 16.0 % [facility] Platelet Count 347 160 - 400 X10*3/uL [facility] Mean Platelet Volume 9.9 9.4 - 12.3 fL [facility] Neutrophils Percent Auto 53.1 45 - 73 % [facility] Imm Gran Pct Auto 0.4 0.0 - 0.4 % [facility] Lymphocytes Percent Auto 34.1 20 - 40 % [facility] Monocytes Percent Auto 8.9 2 - 11 % [facility] Eosinophils Percent Auto 2.4 0 - 4 % [facility] Basophils Percent Auto 1.1 0 - 2 % [facility] NRBC Pct Auto 0.0 0.0 - 0.2 /100WBC [facility] Neutrophils Absolute Auto 2.9 2.0 - 8.3 x10*3/uL [facility] Imm Gran Abs Auto 0.02 0.00 - 0.03 X10*3/uL [facility] Lymphocytes Absolute Auto 1.9 1.2 - 4.9 X10*3/uL [facility] Monocytes Absolute Auto 0.5 0.1 - 1.2 X10*3/uL [facility] Eosinophils Absolute Auto 0.1 0.0 - 0.4 X10*3/uL [facility] Basophils Absolute Auto 0.1 0.0 - 0.2 X10*3/uL [facility] NRBC Abs Auto 0.000 0.0 - 0.012 X10*3/uL [facility] Blood Venous blood specimen / Unknown 02/06/2025 11:39 AM EDT 02/06/2025 12:58 PM EDT [facility] LAB BLOOD ORDERABLES Final Re sult Performing Organization Address [facility]/ZIP Co de Phone Number [facility] [address] [place] [address] [phone] * HIV-1/2 Antigen and Antibodies, Fourth Generation, with Reflexes (02/06/2025 11:39 AM EDT) HIV AB/AG Nonreactive Nonreactive [facility] Comment:HIV-1 p24 Ag and/or HIV-1/HIV-2 Ab not detected.A test result that is nonreactive does not exclude thepossibility of exposure to or infection with HIV-1 and/orHIV-2. Nonreactive results in this assay for individualswith prior exposure to HIV-1 and/or HIV-2 may be due toantigen and antibody levels that are below the limit ofdetection of this assay.The [employer] HIV Ag/Ab Combo assay result andsupplemental assay results should be interpreted inconjunction with the patient's clinical presentation,history and other laboratory results. If the results areinconsistent with clinical evidence, additional testing issuggested to confirm the result. Blood Venous blood specimen / Unknown 02/06/2025 11:39 AM EDT 02/06/2025 12:58 PM EDT [facility] LAB BLOOD ORDERABLES Final Re sult Performing Organization Address [facility]/ZIP Co de Phone Number [facility] [address] [place] [address] [phone] * TSH (02/06/2025 11:39 AM EDT) Thyroid Stimulating Hormone 3.10 0.32 - 4.0 uIU/mL [facility] Comment:Note: A sustained TS H level above 2.5 uIU/mL may warrant further investigation. TSH 3rd Generation ([facility]) 02/06/2025 11:3 9 AM EDT 02/06/2025 1:04 PM EDT us Generic External Data Provider LAB BLOOD ORDERAB LES Final Result Performing Organization Address [facility]/ZIP Co de Phone Number [facility] [address] [place] [phone] * T4, Free (02/06/2025 11:39 AM EDT) Free T4 (Free Thyroxine) 0.98 0.71 - 1.85 ng/dL [facility] 02/06/2025 11:3 9 AM EDT 02/06/2025 1:04 PM EDT Generic External Data Provider LAB BLOOD ORDERAB LES Final Result Performing Organization Address [facility] de Phone Number [facility] [address] [place] [phone] * (ABNORMAL) Hemoglobin A1c (02/06/2025 11:39 AM EDT) Only the most recent of2 resultswithin the time period is included. Hemoglobin A1c 6.2(H) <6.0 % [facility] Comment:Hemoglobin A1C Refer ence Range Adults: 4.8 - 6.0 % Non diabetic: < 6.0 % Goal: < 7.0 %Additional Action Suggested: > 8.0 %Note: Hemoglobin A1c results are invalid for patients with abnormal amounts of HbF. Blood transfusions may impact the HbA1c concentration in the patient sample. Estimated Average Glucose 131 mg/dL [facility] Comment:eAG = Estimated ave rage glucose which is %A1C expressed asaverage glucose, using the formula of the [id number] Glucose study (ADAG), Diabetes Care, Vol.31,#8,Nov. 2007 02/06/2025 11:3 9 AM EDT 02/06/2025 12:58 PM EDT Generic External Data Provider LAB BLOOD ORDERAB LES Final Result Performing Organization Address [facility]/ZIP Co de Phone Number [facility] [address] [place] [phone] * (ABNORMAL) Lipid Panel, Standard (02/06/2025 11:39 AM EDT) Only the most recent of2 resultswithin the time period is included. Triglycerides 119 <150 mg/dL [facility] Comment:Desirable Triglyceri de: less than 150 mg/dLBorderline High Triglyceride 150-199 mg/dLHigh Triglyceride: 200-499 mg/dLVery High Triglyceride: greater than or equal to 5OO mg/dL Cholesterol 238(H) <200 mg/dL [facility] Comment:Desirable Cholestero l: less than 200 mg/dLBorderline High Cholesterol: 200-239 mg/dLHigh Cholesterol: greater than 239 mg/dL LDL Cholesterol Calculated 169(H) <100 mg/dL [facility] Comment:Desirable LDL: less than 100 mg/dLNear Optimal/Above Optimal LDL: 110- 129 mg/dLBorderline High LDL: 130-159 mg/dLHigh LDL: 160-189 mg/dLVery High LDL: greater than or equal to 190 mg/dL HDL Cholesterol 46 >40 mg/dL [facility] Comment:Desirable HDL: great er than 40 mg/dL Note: This HDL assay may give artificially low results in patients with liver disease. 02/06/2025 11:3 9 AM EDT 02/06/2025 1:04 PM EDT us Generic External Data Provider LAB BLOOD ORDERAB LES Final Result [facility] [address] [place] [phone] * (ABNORMAL) Comprehensive Metabolic Panel (02/06/2025 11:39 AM EDT) Sodium 140 135 - 145 mmol/L [facility] Potassium 3.9 3.3 - 5.1 mmol/L [facility] Chloride 106 96 - 108 mmol/L [facility] Carbon Dioxide 26 22 - 29 mmol/L [facility] Anion Gap 12 12 - 20 [facility] Urea Nitrogen (BUN) 17(H) 9 - 16 mg/dL [facility] Creatinine, Serum 0.65 0.5 - 1.4 mg/dL [facility] Estimated Glomerular Filt Rate >60 [facility] Comment:Chronic Kidney Disea se: Estimated GFR < 60 mL/min/1.73y8Blnzoe Kidney Disease: Estimated GFR < 15 mL/min/1.73m2 Glucose 106 60 - 115 mg/dL [facility] Calcium 9.2 8.4 - 10.2 mg/dL [facility] Bilirubin, Total 0.4 0.0 - 1.0 mg/dL [facility] Aspartate Amino Transferase 28 5 - 31 U/L [facility] Alanine Aminotransferase 34(H) 0 - 31 U/L [facility] Total Protein 7.0 6.5 - 8.0 g/dL [facility] Albumin Level 4.3 3.5 - 5.0 g/dL [facility] Alkaline Phosphatase 96 39 - 117 U/L [facility] Blood Venous blood specimen / Unknown 02/06/2025 11:39 AM EDT 02/06/2025 1:04 PM EDT [facility] LAB BLOOD ORDERABLES Final Re sult [facility] [address] [place] [address] [phone] from Last 3 Months Insurance [facility] MEDICARE ADVANTAGE Care Teams High School Teacher Relationship Specialty Start Date End Date Mag Lynne FNP [address] [place] [phone] PCP - General Family Medicine 02/17/25
== END 2025-04-01 07:34 | disposition home or self-care (01) ==
LOC: HO.MAMMO 07:33
PROVIDERS: PCP Registered Nurse; Visit Provider Registered Nurse
DX: Z12.31 Encounter for screening mammogram for malignant neoplasm of breast (principal)
CPT/HCPCS: 77063; 77067

== ENCOUNTER → 2025-04-01 07:45 | Outpatient (BNV) | payer MEDICARE, SELFPAY | PROVIDERS: PCP Registered Nurse; Visit Provider Radiology Body Imaging | DX: Z12.31 Encounter for screening mammogram for malignant neoplasm of breast (principal) | CPT/HCPCS: 77063; 77067 ==